=== PATIENT | female | born 1955 | race Caucasian/White ===

== ENCOUNTER 2022-05-11 10:14 | Outpatient (REF) | payer MEDICARE, OTHER, SELFPAY ==
--- NOTE | ~2022-05-11 | US_ITS ---
EXAMINATION: US LOWER EXTREMITY VENOUS (REFLUX EXAM), BILATERAL CLINICAL INDICATION: Bilateral lower extremity edema COMPARISON: None. TECHNIQUE: Color flow triplex imaging and compression Doppler was performed to evaluate both the deep and the superficial systems bilaterally. To evaluate the superficial system, the examination was performed in the upright position. Color-flow Doppler ultrasound and compression ultrasound were utilized. In addition, maneuvers were utilized to demonstrate reflux. FINDINGS: 1. DEEP VENOUS ULTRASOUND OF THE RIGHT LOWER EXTREMITY: Common Femoral Vein: Compressible, normal respiratory variation and augmented flow. Femoral Vein: Compressible, normal color flow and augmentation. Popliteal Vein: Compressible, normal augmentation. Deep Reflux: There is no evidence of reflux in the deep system in either the common femoral vein or the popliteal vein. There is no evidence of a Lagunas's cyst. 2. SUPERFICIAL ULTRASOUND WITH DOPPLER OF RIGHT LOWER EXTREMITY: GREAT SAPHENOUS VEIN: Saphenofemoral Junction: 0.6 cm; Reflux: 0 ms Proximal Thigh: 0.3 cm; Reflux: 0 ms Mid Thigh: 0.3 cm; Reflux: 0 ms Above Knee: 0.4 cm; Reflux: 0 ms At Knee: 0.3 cm; Reflux: 0 ms Below Knee: 0.3 cm; Reflux: 0 ms Mid Calf: 0.2 cm; Reflux: 0 ms Ankle: 0.2 cm; Reflux: 0 ms DUPLICATED MEDIAL GREAT SAPHENOUS VEIN: Diameter: 0.4 cm Reflux: None DUPLICATED LATERAL GREAT SAPHENOUS VEIN: Diameter: None Imaged Reflux: NA SMALL SAPHENOUS VEIN: Proximal: Not visualized Distal: 0.3 cm; Reflux: 0 ms VEIN OF GIACOMINI: None Imaged. PERFORATORS: Location: Distal thigh Size: 0.2 cm Reflux: None VARICOSITIES: Location: knee, anterior distal thigh Size: 0.1 to 0.3 cm Reflux: 796-1824 milliseconds 3. DEEP VENOUS ULTRASOUND OF THE LEFT LOWER EXTREMITY: Common Femoral Vein: Compressible, normal respiratory variation and augmented flow. Femoral Vein: Compressible, normal color flow and augmentation. Popliteal Vein: Compressible, normal augmentation. Deep Reflux: There is no evidence of reflux in the deep system in either the common femoral vein or the popliteal vein. There is no evidence of a Lagunas's cyst. 4. SUPERFICIAL ULTRASOUND WITH DOPPLER OF LEFT LOWER EXTREMITY: GREAT SAPHENOUS VEIN: Saphenofemoral Junction: 0.7 cm; Reflux: 0 ms Proximal Thigh: 0.2 cm; Reflux: 0 ms Mid Thigh: 0.4 cm; Reflux: 0 ms Above Knee: 0.3 cm; Reflux: 0 ms At Knee: 0.3 cm; Reflux: 0 ms Below Knee: 0.3 cm; Reflux: 0 ms Mid Calf: 0.2 cm; Reflux: 0 ms Ankle: 0.2 cm; Reflux: 0 ms DUPLICATED MEDIAL GREAT SAPHENOUS VEIN: Diameter: None Imaged Reflux: NA DUPLICATED LATERAL GREAT SAPHENOUS VEIN: Diameter: None Imaged Reflux: NA SMALL SAPHENOUS VEIN: Proximal: 0.1 cm; Reflux: 0 ms Distal: 0.2 cm; Reflux: 0 ms VEIN OF GIACOMINI: None Imaged. PERFORATORS: Location: Distal small saphenous vein and the mid thigh Size: 0.2 cm Reflux: None VARICOSITIES: Location: Distal thigh and posterior lateral mid thigh Size: 0.3 cm Reflux: 640 ms US/US venous duplex LE BI IMPRESSION: Right: No significant reflux in the saphenous veins. There are scattered small varicose veins with reflux as described above Left: No significant reflux in the saphenous veins. There are scattered multiple varicose veins with reflux as described above
== END 2022-05-11 10:15 | disposition home or self-care (01) ==
LOC: HO.US 10:14
PROVIDERS: PCP Internal Medicine; Visit Provider Family Medicine
DX: R60.0 Localized edema (principal)
CPT/HCPCS: 93970

== ENCOUNTER → 2022-07-28 10:04 | Outpatient (BNVA) | payer MEDICARE, OTHER, SELFPAY | PROVIDERS: PCP Internal Medicine; Visit Provider Surgery Vascular Surgery | DX: I83.12 Varicose veins of left lower extremity with inflammation (principal); I89.0 Lymphedema, not elsewhere classified | CPT/HCPCS: 99202 ==

== ENCOUNTER 2023-11-27 10:13 | Outpatient (REF) | payer MEDICARE, SELFPAY ==
[2023-11-27 14:57] LABS: Alanine Aminotransferase 23 U/L (0-31); Albumin Level 3.7 g/dL (3.5-5.0); Alkaline Phosphatase 91 U/L (39-117); Anion Gap 9 (12-20); Aspartate Amino Transferase 18 U/L (5-31); Bilirubin Direct 0.1 mg/dL (0.0-0.5); Bilirubin Total 0.4 mg/dL (0.0-1.0); Blood Urea Nitrogen 15 mg/dL (9-16); Carbon Dioxide 28 mmol/L (22-29); Chloride 107 mmol/L (96-108); Cholesterol 214 mg/dL (<200); Estimated Glomerular Filt Rate > 60; Glucose Fasting 88 mg/dL (60-99); HDL Cholesterol 59 mg/dL (>40); LDL Cholesterol Calculated 136 mg/dL (<100); Sodium 140 mmol/L (135-145); Total Protein 6.5 g/dL (6.5-8.0); Triglycerides 97 mg/dL (<150)
[2023-11-27 15:16] LABS: TSH reflex Free T4 1.63 uIU/mL (0.32-4.0)
[2023-11-28 08:29] LABS: ~HepC Num1 0.07 S/CO (0.00-0.79); ~Hepatitis C Antibody Nonreactive (Nonreactive)
== END 2023-11-27 10:14 | disposition home or self-care (01) ==
LOC: HO.CHCLDS 10:13
PROVIDERS: Visit Provider Internal Medicine
DX: E78.00 Pure hypercholesterolemia, unspecified (principal); R60.0 Localized edema
CPT/HCPCS: 36415; 80048; 80061; 80076; 84443; 86803

== ENCOUNTER 2023-12-19 10:29 | Outpatient (REF) | payer MEDICARE, SELFPAY ==
--- NOTE | 2023-12-19 10:36 | ECG_ITS ---
Test Reason : bradycardia Blood Pressure : / mmHG Vent. Rate : 063 BPM Atrial Rate : 000 BPM P-R Int : 000 ms QRS Dur : 082 ms QT Int : 398 ms P-R-T Axes : 000 013 060 degrees QTc Int : 407 ms Normal sinus rhythm with Premature atrial complexes in a pattern of bigeminy Abnormal ECG No previous ECGs available Referred By: Disha Noe Electronically Signed By:SAMARA RODRIGUEZ MD
== END 2023-12-19 10:30 | disposition home or self-care (01) ==
LOC: HO.LAB 10:29
PROVIDERS: PCP Internal Medicine; Visit Provider Internal Medicine
DX: R00.1 Bradycardia, unspecified (principal)
CPT/HCPCS: 93005

== ENCOUNTER → 2023-12-19 10:36 | Outpatient (BNV) | payer MEDICARE, MEDICAID, SELFPAY | PROVIDERS: PCP Internal Medicine; Visit Provider Internal Medicine Cardiovascular Disease | DX: I49.1 Atrial premature depolarization (principal) | CPT/HCPCS: 93010 ==

== ENCOUNTER → 2024-01-11 09:42 | Outpatient (REF) | payer MEDICARE, MEDICAID, SELFPAY ==
--- NOTE | 2024-01-11 09:46 | HM_ITS ---
Conclusion: 1. Patient was monitored for total period of 1 day 2. Baseline was normal sinus rhythm with average heart of 66 beats per minute 3. Frequent sinus bradycardia noted with about 44% of time heart rate below 60 beats per minute but without any significant pauses 4. Frequent PACs noted with total burden of 3.6% 5. No patient reported events MTDD
== END ==
LOC: HO.CARD 09:42
PROVIDERS: PCP Internal Medicine; Visit Provider Internal Medicine
DX: R42 Dizziness and giddiness (principal); R94.31 Abnormal electrocardiogram [ECG] [EKG]
CPT/HCPCS: 93225

== ENCOUNTER → 2024-01-11 09:46 | Outpatient (BNV) | payer MEDICARE, MEDICAID, SELFPAY | PROVIDERS: PCP Internal Medicine; Visit Provider Internal Medicine Cardiovascular Disease | DX: R00.1 Bradycardia, unspecified (principal) | CPT/HCPCS: 93227 ==

== ENCOUNTER 2024-02-01 09:13 | Outpatient (REF) | payer MEDICARE, MEDICAID, SELFPAY ==
[2024-02-01 14:26] LABS: Cholesterol 195 mg/dL (<200); HDL Cholesterol 53 mg/dL (>40); LDL Cholesterol Calculated 125 mg/dL (<100); Triglycerides 88 mg/dL (<150)
== END 2024-02-01 09:14 | disposition home or self-care (01) ==
LOC: HO.CHCLDS 09:13
PROVIDERS: Visit Provider Internal Medicine
DX: E78.00 Pure hypercholesterolemia, unspecified (principal)
CPT/HCPCS: 36415; 80061

== ENCOUNTER 2024-11-04 11:02 | Outpatient (REF) | payer MEDICARE, SELFPAY ==
--- OUTSIDE RECORDS SUMMARY | 2024-11-04 12:29 | XMS_ITS | Encounter Summary ---
Author Organization [employer] Address [address] [facility] [address] [place] [address] Care Team Providers Care Bleacher Sulfite Pulp Name Role Phone Sarah Donald MD Primary Care Provider [phone] Encounter Details Date Type Department Care Team (Latest Contact Info) Description 11/04/2024 Travel Social History Tobacco Use Types Packs/Day Years Used Date Smoking Tobacco: Never Passive Smoke Exposure: Never Smokeless Tobacco: Never Alcohol Use Standard Drinks/Week Comments Never 0 (1 standard drink = 0.6 oz pur e alcohol) Alcohol Answer Date Recorded Q1: How often do you have a drink containing alc ohol? 2 06/24/2024 Q2: How many drinks containi ng alcohol do you have on a typical day when you are drinking? 0 06/24/2024 Q3: How often do you have six or more drinks on one occasion? 1 06/24/2024 Depression Answer Date Recorded Patient Health Questionnaire-9 Score 0 11/04/2024 Patient Health Questionnaire-9 Score 0 11/04/2024 Last PHQ-9: Questionnaire Data Not on file 0 11/04/2024 Housing Stability Answer Date Recorded What is your housing situation today? I have alfonsolatoya baker 11/04/[address] you li ve. Do you have problems with any of the following? None of the above 11/04/2024 Food Insecurity Answer Date Recorded Within the past 12 months, y ou worried that your food would run out before you got money to buy more: Never True 11/04/2024 Within the past 12 months,th e food you bought just didn't last and you didn't have enough money to get more: Not on file 05/2025 Transportation Answer Date Recorded In the past 12 months, has l ack of transportation kept you from medical appts, meetings, work or from getting things needed for daily living? No 11/04/2024 Utilities Answer Date Recorded In the past 12 months, has t he electric, gas, oil or water company threatened to shut off services in your home? No 11/04/2024 Depression Answer Date Recorded Patient Health Questionnaire-2 Score 0 11/04/2024 Internet Access Answer Date Recorded Internet Access Q1 Yes 11/04/2024 Internet Access Q2 Not on file 11/04/2024 Comments Unknown Sex and Gender Information Value Date Recorded Sex Assigned at Female 06/27/2022 10:21 AM EDT Legal Sex Female 10:21 AM EDT Gender Identity Female 06/27/2022 10:21 AM EDT Sexual Orientation Straight 06/27/2022 10 :21 AM EDT documented as of this encounter Plan of Treatment Upcoming Encounters Date Type Department Care Team ([facility] st Contact Info) Description 12/25/2024 11:00 AM EDT Office Visit [facility] AD[facility] [address] [place] [address] Jayda Singh documented as of this encounter Visit Diagnoses Not on filedocumented in this encounter Additional Health Concerns Assessment Noted Time PHQ-9 Depression Total Score: 0 11/05/19 25 9:53 AM EDT documented as of this encounter Care Teams Bleacher Sulfite Pulp Relationship Specialty Start Date End Date Sarah Donald MD [address] [place] [address] PCP - General Internal Medicine 08/28/18 documented as of this encounter
--- OUTSIDE RECORDS SUMMARY | 2024-11-04 12:29 | XMS_ITS ---
Author Organization [facility] Address [address] [address] Care Team Providers Care Student Teacher Name Role Phone Sarah Donald Primary Care Provider Unavail able MARY BETH DE LEON Unavailable [phone] Allergies No Known Allergies REASON FOR VISIT left foot pain X 3 weeks... stepped off of stairs the wrong way Medications Medication SIG (Take, Route, Frequency, Duration) Notes Start Date End Date Status Vitamin D 25 MCG (1000 UT) 1 tablet Orally Once a day Active Diclofenac Sodium 1 % as directed Externally Not-Taking Furosemide 20 MG 1 tablet Orally Once a day Not-Taking Estradiol 0.1 MG/24HR 1 patch to skin Transdermal Active Finasteride 5 MG 1 tablet Orally Once a day Not-Taking Simvastatin 40 MG 1 tablet in the even ing Orally Once a day Active Lisinopril-hydroCHLOROthi azide 10-12.5 MG 1 tablet Orally Once a day Active Omeprazole 20 MG 1 capsule 30 minutes before morning meal Orally Once a day Active Oxymetazoline HCl 1 % 1 application Externally Once a day Not-Taking Melatonin 5 MG 1 tablet in the even ing Orally Once a day Not-Taking Vital Signs Temperature 96.8 degrees Fahrenheit 10/24/19 24 Heart Rate 84 /min 10/24/2023 Respiratory Rate 16 /min 10/24/2023 Height 5ft 5.5in in 10/24/2023 Weight 208.6 lbs 10/24/2023 BMI 34.18 kg/m2 10/24/2023 Encounters Encounter Location Date Provider Diagnosis [facility] [address] [address] 10/24/2023 MARY BETH DE LEON Closed avulsion fracture of metatarsal bone of left foot, initial encounter S92.302A Assessments Encounter Date Diagnosis (ICD Code) Assessment Notes Treatment Notes Treatment Clinical Notes Section Notes 10/24/2023 Closed avulsion fracture of metatarsal bone of left foot, initial encounter (ICD-10 - S92.302A) Patient examined and evaluated today. Her past medical history was reviewed. Weightbearing radiographs of patient's left foot were reviewed with them on the computer with the help of a skeletal foot model. Patient has a small chip like avulsion fracture to the base of the 5th metatarsal.. I discussed with the patient that it takes 6-8 weeks for the tenderness to calm down This fracture did not need manual manipulation today and will be treated with continue protective stiff soled shoe gear, icing, and elevation. I advised the patient to keep elevating the foot to heart level, icing, and using anti-inflammatori es as needed for pain. The patient may walk on the foot. Patient may feel better if they wear a more supportive sneaker when ambulating. Patient should refrain from any high impact loading activities for the next 4 weeks. Patient voiced understanding. I discussed with the patient if they continue to have pain after about 3 months or the pain worsens, they should call to make another appointment. I provided the patient with an educational print out on 5th metatarsal fractures and printed copies of her radiographs. She can follow back as needed. Plan Of Treatment Treatment Notes Assessment Notes Closed avulsion fracture of metatarsal bone of left foot, initial encounter Patient examined and evaluated today. He r past medical history was reviewed. Weightbearing radiographs of patient's left foot were reviewed with them on the computer with the help of a skeletal foot model. Patient has a small chip like avulsion fracture to the base of the 5th metatarsal.. I discussed with the patient that it takes 6-8 weeks for the tenderness to calm down This fracture did not need manual manipulation today and will be treated with continue protective stiff soled shoe gear, icing, and elevation. I advised the patient to keep elevating the foot to heart level, icing, and using anti-inflammatories as needed for pain. The patient may walk on the foot. Patient may feel better if they wear a more supportive sneaker when ambulating. Patient should refrain from any high impact loading activities for the next 4 weeks. Patient voiced understanding. I discussed with the patient if they continue to have pain after about 3 months or the pain worsens, they should call to make another appointment. I provided the patient with an educational print out on 5th metatarsal fractures and printed copies of her radiographs. She can follow back as needed. Pending Test Test Name Order Date X ray : Foot, left 3v 10/24/2023 Progress Notes * Akilah MILLER TDOB: [birth year] (67 yo F)Acc No.[id number]:10/24/2023 Progress Notes Patient:?Akilah MILLER Provider:?Mary Beth Harris DPTaco :1955???Age:67 Y???Sex:Female D ate:10/24/2023 Address:[address] [place], [place] [id number] Pcp:Sarah Donald Subjective: * Chief Complaints: * ???left foot pain X 3 weeks. .. stepped off of stairs the wrong way * HPI: ???Foot & Ankle:? Ms. Miller is a pleasant 67 year old female who presents for a consultation. She has been having pain to the outer aspect of her left foot for the past 3 weeks. It seemed to start after a misstep on her stairs. She did not notice and bruising after the injury. She did notice some increased swelling to the foot. She does have lower extremity swelling at baseline. She states at first the foot was very painful to walk on. She states now it is just painful with direct pressure to the area, but she can walk on it. She denies any injuries in the past to the left foot. She has been resting the foot as much as possible. * ROS:?General/Constitutional:?Denies?Chills.?Denies?Fatigue.?Denies?Fever.?Denies?Headache.?Allergy/Immunology:?Denies?Hives.?Denies?Itching.?Denies?Rash.?Endocrine:?Denies?Excessive sweating.?Denies?Excessive thirst.?Denies?Frequent urination.?Respiratory:?Denies?Cough.?Denies?Shortness of breath,?denies.?Denies?Wheezing.?Cardiovascular:?Denies?Chest pain.?Denies?Claudication.?Denies?Cyanosis.?Admits?Fluid accumulation in the legs.?Gastrointestinal:?Denies?Abdominal pain.?Denies?Constipation.?Denies?Diarrhea.?Hematology:?Denies?Bleeding problems,?denies.?Denies?Easy bruising,?denies.?Denies?Swollen glands.?Musculoskeletal:?Patient complaining of?pain to the outer aspect of the left foot.?Admits?Arthritis/Arthralgia.?Admits?Back problems.?Denies?Leg cramps.?Denies?Limping gait.?Peripheral Vascular:?Denies?Blanching of skin.?Blood clots in legs?Denies.?Denies?Cold extremities.?Skin:?Denies?Masses.?Denies?Nail changes.?Denies?Skin lesion(s).?Neurologic:?Denies?Paralysis.?Denies?Tingling/Numbness.?Denies?Tremor.?Psychiatric:?Denies?Auditory/visual hallucinations.?Denies?Delusions.?Denies?Suicidal thoughts.? * Medical History:? * Surgical History:?hysterecto my 2002spinal fusion 2006right shoulder surgery ilateral carpal tunnel release * Hospitalization/Major Diagno stic Procedure:?vaginal delivery (boy) 1975vaginal delivery (boy) 1979hysterectomy 2002spinal fusion 2005 * Family History:?Father: hear t disease.?Mother: hypertension, heart disease.?Siblings: sister- hypertension, breast cancerbrother- diabetes, heart disease.?2 son(s) - healthy. .? * Social History:?Tobacco: no Alcohol: no. * Medications:?TakingSimvastat in 40 MG Tablet 1 tablet in the evening Orally Once a day Omeprazole 20 MG Capsule Delayed Release 1 capsule 30 minutes before morning meal Orally Once a day Lisinopril-hydroCHLOROthiazide 10-12.5 MG Tablet 1 tablet Orally Once a day Estradiol 0.1 MG/24HR Patch Weekly 1 patch to skin Transdermal Vitamin D 25 MCG (1000 UT) Tablet 1 tablet Orally Once a day Taking Simvastatin 40 MG Tablet 1 tablet in the evening Orally Once a day Taking Omeprazole 20 MG Capsule Delayed Release 1 capsule 30 minutes before morning meal Orally Once a day Taking Lisinopril-hydroCHLOROthiazide 10-12.5 MG Tablet 1 tablet Orally Once a day Taking Estradiol 0.1 MG/24HR Patch Weekly 1 patch to skin Transdermal Taking Vitamin D 25 MCG (1000 UT) Tablet 1 tablet Orally Once a day Not-TakingOxymetazoline HCl 1 % Cream 1 application Externally Once a day Melatonin 5 MG Tablet 1 tablet in the evening Orally Once a day Furosemide 20 MG Tablet 1 tablet Orally Once a day Finasteride 5 MG Tablet 1 tablet Orally Once a day Diclofenac Sodium 1 % Gel as directed Externally Medication List reviewed and reconciled with the patientNot-Taking Oxymetazoline HCl 1 % Cream 1 application Externally Once a day Not-Taking Melatonin 5 MG Tablet 1 tablet in the evening Orally Once a day Not-Taking Furosemide 20 MG Tablet 1 tablet Orally Once a day Not-Taking Finasteride 5 MG Tablet 1 tablet Orally Once a day Not-Taking Diclofenac Sodium 1 % Gel as directed Externally Medication List reviewed and reconciled with the patient * Allergies:?N.K.D.A.no[Allerg ies Verified] Objective: * Vitals:?Wt:208.6lbs, Ht: 5ft 5.5in, BMI:34.18Index, HR:84/min, Temp:96.8F, RR:16/min, Ht-cm: 166.37, Wt-k.62 kg. * Examination: ???General Examination: ???This is an elderly female. Alert and oriented today and in no acute distress. Patient comes in ambulating in flats without using any assistive devices. Breathing is regular and unlabored while sitting. Affect is pleasant and cooperative. No unusual anxiety or depression noted. Hearing intact to spoken word. No evidence of visual impairment that would impact self care or ambulation. Patient has palpable dorsalis pedis and posterior tibial pulse bilaterally. Spider varicosities visualized. Peripheral edema present from the tibial tuberosity to the dorsum of the foot bilaterallly. This is pitting in nature. Capillary refill is less than 3 seconds to all digits bilaterally. Light touch sensation is symmetrical to all lower extremity dermatomes. Babinski is downgoing. Skin has normal turgor and texture. There are no open wounds, rashes, or lesions noted. There is pain with direct pressure to the left 5th metatarsal base. No ecchymosis, erythema, or increased edema. There is no pain proximally along the left peroneal tendons. No pain plantarly to the 5th met base on the left. There is mild restricted motion of the subtalar joint range of motion bilaterally without pain. Ankle joint range of motion is unrestricted bilaterally without pain. 5/5 strength for anterior, posterior, and lateral lower extremity muscle groups on the left and right. Therapeutic Interventions: Assessment: * Assessment: 1.?Closed avulsion fracture of metatarsal bone of left foot, initial encounter - S92.302A (Primary)? Plan: * Treatment: * Procedures:?LEFT FOOT RADIOGRAPHS 10/24/2023 3 weight bearing views (AP, LAT, LO PROJECTION/MO VIEW) Taken in the office and read by the physician. Osseous mineralization is age appropriate. There is mild narrowing of the 1st MPJ with sclerosis. There is a small chip fracture present to the base of the 5th metatarsal with minimal displacement. there is also a small enthesophyte to the lateral aspect of the 5th metatarsal base. Large posterior and plantar calcaneal enthesophytes. The anterior process of the calcaneus is elongated suggesting possible coalition. Mild sclerosis to the subtalar joint. No radio opaque foreign bodies or soft tissue calcifications. Diffuse soft tissue edema to the dorsum of the foot without soft tissue emphysema. ? * Procedure Codes:?10861 X-RAY EXAM OF FOOT 3 Views, Modifiers: LT * Billing Information: * Visit Code:? 22831 Office Visit, New Pt., Level 3. * Procedure Codes:? 73275 X-RAY EXAM OF FOOT 3 Views. Modifiers: LT * Sign off status: Completed true * Provider:Audra Harris DPM Date:?10/24 Generated for Ismael westbrook/Harjinder/Demond on:?11/04/2024 08:48 AM EDT History and Physical Notes * Examination Category Sub-Category Detail Notes Category Not es General Examination This is an elderly female. Alert and oriented today and in no acute distress. Patient comes in ambulating in flats without using any assistive devices. Breathing is regular and unlabored while sitting. Affect is pleasant and cooperative. No unusual anxiety or depression noted. Hearing intact to spoken word. No evidence of visual impairment that would impact self care or ambulation. Patient has palpable dorsalis pedis and posterior tibial pulse bilaterally. Spider varicosities visualized. Peripheral edema present from the tibial tuberosity to the dorsum of the foot bilaterallly. This is pitting in nature. Capillary refill is less than 3 seconds to all digits bilaterally. Light touch sensation is symmetrical to all lower extremity dermatomes. Babinski is downgoing. Skin has normal turgor and texture. There are no open wounds, rashes, or lesions noted. There is pain with direct pressure to the left 5th metatarsal base. No ecchymosis, erythema, or increased edema. There is no pain proximally along the left peroneal tendons. No pain plantarly to the 5th met base on the left. There is mild restricted motion of the subtalar joint range of motion bilaterally without pain. Ankle joint range of motion is unrestricted bilaterally without pain. 5/5 strength for anterior, posterior, and lateral lower extremity muscle groups on the left and right.
--- OUTSIDE RECORDS SUMMARY | 2024-11-04 12:29 | XMS_ITS | Patient Health Record ---
Author Organization [facility] Address [address] [facility] [address] [place] [address] Care Team Providers Care Events Intern Name Role Phone Sarah Donald Primary Care Provider Unavail able JOLENE DE LEON Unavailable [phone] Allergies No Known Allergies Reason For Referral No Information Medications Medication SIG (Take, Route, Frequency, Duration) Notes Start Date End Date Status Vitamin D 25 MCG (1000 UT) 1 tablet Orally Once a day Active Diclofenac Sodium 1 % as directed Externally Not-Taking Simvastatin 40 MG 1 tablet in the even ing Orally Once a day Active Furosemide 20 MG 1 tablet Orally Once a day Not-Taking Lisinopril-hydroCHLOROthi azide 10-12.5 MG 1 tablet Orally Once a day Active Estradiol 0.1 MG/24HR 1 patch to skin Transdermal Active Finasteride 5 MG 1 tablet Orally Once a day Not-Taking Omeprazole 20 MG 1 capsule 30 minutes before morning meal Orally Once a day Active Oxymetazoline HCl 1 % 1 application Externally Once a day Not-Taking Melatonin 5 MG 1 tablet in the even ing Orally Once a day Not-Taking Plan Of Treatment Pending Test Test Name Order Date X ray : Foot, left 3v 10/24/2023 Insurance Providers Payer Name Payer Address Payer Phone Subscriber Number Group Number Insured Name Patient Relationship to Insured Coverage Start Date Coverage End Date [employer] of [place] [address] [place] [phone] [id number] Akilah Caro Self - patient is the insured Medical (General) History Medical History History ICD Code Lower back pain hypertension hypercholesterolemia Lower extremity peripheral edema chronic pain of left knee + COVID 2021 COVID vaccinated X 3 (Pfizer) Surgical History Surgery Date(Month/Year) hysterectomy 2001 spinal fusion 2005 right shoulder surgery 2021 bilateral carpal tunnel release Hospitalization History Reason Date(Month/Year) spinal fusion 2006 hysterectomy 2002 vaginal delivery (boy) 1978 vaginal delivery (boy) 1975
--- OUTSIDE RECORDS SUMMARY | 2024-11-04 12:29 | XMS_ITS | Encounter Summary ---
Author Organization [employer] Address [address] [place] [address] [place], [place] [address] Care Team Providers Care Sandblast Operator Name Role Phone Sarah Donald MD Primary Care Provider [phone] Encounter Details Date Type Department Care Team (Latest Contact Info) Description 11/17/2020 Abstract [facility] CONVERSIONS Dental, Provider, DDS Social History Tobacco Use Types Packs/Day Years Used Date Smoking Tobacco: Never Assessed Comments Unknown Sex and Gender Information Value Date Recorded Sex Assigned at Female 06/27/2022 10:21 AM EDT Legal Sex Female 10:21 AM EDT Gender Identity Female 06/27/2022 10:21 AM EDT Sexual Orientation Straight 06/27/2022 10 :21 AM EDT documented as of this encounter Plan of Treatment Upcoming Encounters Date Type Department Care Team (Late st Contact Info) Description 12/25/2024 11:00 AM EDT Office Visit [facility] ADULT DENTAL [address] [place] [address] Jayda Singh documented as of this encounter Visit Diagnoses Not on filedocumented in this encounter Care Teams Sandblast Operator Relationship Specialty Start Date End Date Sarah Donald MD [address] [place] [address] PCP - General Internal Medicine 08/28/18 documented as of this encounter
--- OUTSIDE RECORDS SUMMARY | 2024-11-04 12:29 | XMS_ITS | Encounter Summary ---
Author Organization [employer] Address [address] [facility] 7t [place] [address] Care Team Providers Care Customer Field Representative Name Role Phone Sarah Donald MD Primary Care Provider +1- [phone] Reason for Visit * Reason Onset Date Comments Med Refill 02/01/2024 Encounter Details Date Type Department Care Team ([facility] st Contact Info) Description 02/01/2024 Refill [facility] MED & PEDS [address] [place] [address] Sarah Donald MD [address] [place] [address] Gastroesophageal reflux disease without esophagitis Social History Tobacco Use Types Packs/Day Years Used Date Smoking Tobacco: Never Passive Smoke Exposure: Never Smokeless Tobacco: Never Alcohol Use Standard Drinks/Week Comments Never 0 (1 standard drink = 0.6 oz pur e alcohol) Depression Answer Date Recorded Patient Health Questionnaire-9 Score 3 11/29/2022 Housing Stability Answer Date Recorded What is your housing situation today? I have alfonso baker 06/20/[address] you li ve. Do you have problems with any of the following? None of the above 06/20/2023 Food Insecurity Answer Date Recorded Within the past 12 months, y ou worried that your food would run out before you got money to buy more: Never True 06/20/2023 Within the past 12 months,th e food you bought just didn't last and you didn't have enough money to get more: Never True Transportation Answer Date Recorded In the past 12 months, has l ack of transportation kept you from medical appts, meetings, work or from getting things needed for daily living? No 06/20/2023 Utilities Answer Date Recorded In the past 12 months, has t he electric, gas, oil or water company threatened to shut off services in your home? No 06/20/2023 Depression Answer Date Recorded Patient Health Questionnaire-2 Score 2 11/29/2022 Comments Unknown Sex and Gender Information Value Date Recorded Sex Assigned at Female 06/27/2022 10:21 AM EDT Legal Sex Female 10:21 AM EDT Gender Identity Female 06/27/2022 10:21 AM EDT Sexual Orientation Straight 06/27/2022 10 :21 AM EDT documented as of this encounter Plan of Treatment Upcoming Encounters Date Type Department Care Team ([facility] st Contact Info) Description 12/25/2024 11:00 AM EDT Office Visit [facility] ADULT DENTAL [address] [place] [address] Jayda Singh documented as of this encounter Visit Diagnoses Diagnosis Gastroesophageal reflux disease without esophagitis Esophageal reflux documented in this encounter Additional Health Concerns Assessment Noted Time PHQ-9 Depression Total Score: 3 11/30/19 23 1:45 PM EDT documented as of this encounter Care Teams Customer Field Representative Relationship Specialty Start Date End Date Sarah Donald MD [address] [place] [address] PCP - General Internal Medicine 08/28/18 documented as of this encounter
--- OUTSIDE RECORDS SUMMARY | 2024-11-04 12:29 | XMS_ITS | Encounter Summary ---
Author Organization [employer] Address [address] [facility] 7t [place] [address] Care Team Providers Care Cytotechnologist Name Role Phone Sarah Donald MD Primary Care Provider [phone]- [phone] Encounter Details Date Type Department Care Team ([facility] st Contact Info) Description 12/13/2023 Orders Only [facility] MED & PEDS [address] [place], [place] [phone] Sarah Donald MD [address] [place] [address] Harika (Primary Dx) Social History Tobacco Use Types Packs/Day Years [...] Description 12/25/2024 11:00 AM EDT Office Visit [facility] ADULT DENTAL [address] [place] [address] Jayda Singh documented as of this encounter Visit Diagnoses Diagnosis Rosacea- Primary documented in this encounter Additional Health Concerns Assessment Noted Time PHQ-9 Depression Total Score: 3 11/30/19 23 1:45 PM EDT documented as of this encounter Care Teams Cytotechnologist Relationship Specialty Start Date End Date Sarah Donald MD [address] [place] [address] PCP - General Internal Medicine 08/28/18 documented as of this encounter
--- OUTSIDE RECORDS SUMMARY | 2024-11-04 12:29 | XMS_ITS | Encounter Summary ---
Author Organization [employer] Address [address] [place] [address] [address] [address] Care Team Providers Care Community Outreach Director Name Role Phone Sarah Donald MD Primary Care Provider +1- [phone] Encounter Details Date Type Department Care Team (Latest Contact Info) Description 05/31/2019 Abstract [facility] CONVERSIONS Dental, Provider, DDS Social History [...] Description 12/25/2024 11:00 AM EDT Office Visit [facility] ADULT DENTAL [address] [place] [address] Jayda Singh documented as of this encounter Visit Diagnoses Not on filedocumented in this encounter Care Teams Community Outreach Director Relationship Specialty Start Date End Date Sarah Donald MD [address] [place] [address] PCP - General Internal Medicine 08/28/18 documented as of this encounter
--- OUTSIDE RECORDS SUMMARY | 2024-11-04 12:29 | XMS_ITS | Encounter Summary ---
Author Organization [employer] Address [address] [facility] 7t [place] [address] Care Team Providers Care In Home Baby Sitter Name Role Phone Sarah Donald MD Primary Care Provider +1- [phone] Encounter Details Date Type Department Care Team ([facility] st Contact Info) Description 01/29/[address] [facility] MED & PEDS [address] [place], [place] [phone] Sarah Donald MD [address] [place] [address] Social History Tobacco Use Types Packs/Day Years [...] Description 12/25/2024 11:00 AM EDT Office Visit [facility] ADULT DENTAL [address] [place] [address] Jayda Singh documented as of this encounter Visit Diagnoses Not on filedocumented in this encounter Additional Health Concerns Assessment Noted Time PHQ-9 Depression Total Score: 3 11/30/19 23 1:45 PM EDT documented as of this encounter Care Teams In Home Baby Sitter Relationship Specialty Start Date End Date Sarah Donald MD [address] [place] [address] PCP - General Internal Medicine 08/28/18 documented as of this encounter
--- OUTSIDE RECORDS SUMMARY | 2024-11-04 12:29 | XMS_ITS | Clinical Summary ---
Author Organization [employer] Address [address] [facility] 7t [place] [address] Care Team Providers Care Irrigation District Manager Name Role Phone Sarah Donald MD Primary Care Provider +1- [phone] Allergies No known active allergies Medications finasteride (Proscar) 5 MG tablet Take 1 tablet by mouth at bed time. 09/21/19 22 Active melatonin 5 MG tablet take 1 by Oral route once a day 04/17/20 19 Active Diclofenac Sodium 1 % gelIndications :Chronic pain of left knee Apply to the affected area 3 times a day 100 g 2 05/31/20 23 Active omeprazole (PriLOSEC) [address] capsule TAKE ONE CAPSULE BY MOUTH EVERY DAY 90 capsule 2 07/24/20 23 Active orlistat (Blayne) 60 MG capsuleIndicat ions:Obesity (BMI 30-39.9) Take 1 capsule (60 mg) by mouth with breakfast, with lunch, and with evening meal. 90 capsule 11 11/30/19 24 025 Active omeprazole (PriLOSEC) [address] capsuleIndicat ions:Gastroeso phageal reflux disease without esophagitis Take 1 capsule (20 mg) by mouth in the morning. 90 capsule 2 11/30/19 24 Active cholecalcifero l (Vitamin D-3) 25 MCG (1000 UT) capsuleIndicat ions:Obesity (BMI 30-39.9) take 1 Capsule by Oral route once a day 30 capsule 11 11/30/19 24 Active simvastatin (Zocor) 40 MG tabletIndicati ons:Hyperchole sterolemia Take 1 tablet (40 mg) by mouth at bedtime. 30 tablet 11 11/30/19 24 025 Active Oxymetazoline HCl 1 % creamIndicatio ns:Rosacea To apply to the affected area daily 30 g 1 11/30/19 24 Active fluticasone (Flonase) 50 MCG/ACT nasal spray Administer 1 spray into each nostril Once per day. 16 g 12/18/19 24 Active co-enzyme Q-10 30 MG capsuleIndicat ions:Hyperchol esterolemia Take 1 capsule (30 mg) by mouth Once per day. 30 capsule 11 06/24/20 24 025 Active furosemide (Lasix) 20 MG tablet 1 tablet in the morning. Active lisinopril-hyd roCHLOROthiazi de 10-12.5 MG tablet TAKE ONE TABLET BY MOUTH EVERY DAY 90 tablet 1 07/22/20 24 Active estradiol (Climara) 0.1 MG/24HR APPLY ONE PATCH EVERY WEEK 12 patch 1 09/11/19 25 Active metroNIDAZOLE (MetroCream) 0.75 % creamIndicatio ns:Rosacea Apply topically 2 times daily. 45 g 1 11/05/19 25 026 Active neomycin-polym yxin-hydrocort isone (Cortisporin) 3.5-63064-4 otic suspensionIndi cations:Acute otitis externa of left ear, unspecified type Administer 3-4 drops into affected ear(s) 4 times daily for 10 days. 10 mL 11/05/19 25 025 Active metroNIDAZOLE (MetroCream) 0.75 % creamIndicatio ns:Rosacea Apply topically 2 times daily. 45 g 1 12/13/19 24 025 Discontinued(Re order (will not trigger notification to Pharmacy)) Active Problems Problem Noted Date Diagnosed Date Encounter for screening colonoscopy 07/01/2024 Vertigo 12/18/2023 Assessment & Plan (12/18/2023 3:27 PM EDT): Likely what triggered this morning's sxs. Take fluticasone nasal + Meclizine prn Increase PO fluids intake since she is on hydrochlorothiazide. Bradycardia 12/18/2023 Assessment & Plan (12/18/2023 3:26 PM EDT): No evidence of bradycardia on PE. ECG today had a poor baseline that seems to show ?junctional rhythm? Will order ECG at and fu result. Patient advised to go to ED if she develops palpitations, CP or episodes of bradycardia below 50s. Back problem 06/13/2013 Disorder of nasal sinus 06/13/2013 High blood pressure 06/13/2013 Hypercholesterolemia 06/13/2013 Swollen feet 06/13/2013 Encounters Date Type Department Care Team Description 11/04/2024 10:00 AM EDT Office Visit [facility] MED & PEDS [address] [place] [address] Sarah Donald MD Primary hypertension (Primary Dx); Hypercholesterolemia; Bradycardia; Family history of breast cancer; Dietary counseling; Exercise counseling; Class 1 obesity due to excess calories with serious comorbidity and body mass index (BMI) of 32.0 to 32.9 in adult; Rosacea; Acute otitis externa of left ear, unspecified type 11/04/2024 Travel 09/11/2024 Refill [facility] MED & PEDS [address] [place] [address] Sarah Donald MD from Last 3 Months Social History Tobacco Use Types Packs/Day Years Used Date Smoking Tobacco: Never Passive Smoke Exposure: Never Smokeless Tobacco: Never Tobacco Cessation:Counseling Given: Not Answered Alcohol Use Standard Drinks/Week Comments Never 0 [...] housing situation today? I have alfonso baker 11/04/[address] you [...] Orientation Straight 06/27/2022 10 :21 AM EDT Last Filed Vital Signs Vital Sign Reading Time Taken Comments Blood Pressure 130/64 11/04/2024 9:52 AM EDT Pulse 78 11/04/2024 9:52 AM EDT Temperature 36.4 ??C (97.6 ??F) 11/04/2024 9:52 AM ED T Respiratory Rate 20 11/04/2024 9:52 AM EDT Oxygen Saturation 98% 11/04/2024 9:52 AM EDT Inhaled Oxygen Concentration - - Weight 89.8 kg (198 lb) 11/04/2024 9:52 AM EDT Height 165.1 cm (5' 5 ) 11/04/2024 9:52 AM EDT Body Mass Index 32.95 11/04/2024 9:52 AM EDT Plan of Treatment Upcoming Encounters Date Type Department Care Team (Late st Contact Info) Description 12/25/2024 11:00 AM EDT Office Visit [facility] ADULT DENTAL [address] [place] [address] Francisco, Jayda Health Maintenance Due Date Last Done Comments CT Colonography 1955 FIT DNA/Cologuard 1955 FIT 1955 FOBT 1955 Sigmoidoscopy 1955 DTaP/Tdap/Td Vaccines (1 - Tdap) 11/30/1974 SDOH Screening 11/30/2023 11/29/2022 Dental Oral Exam 12/25/2024 06/25/2024, 06/2023, 11/17/2020, Additional history exists Dental Prophylaxis 12/25/2024 06/25/2024, 0 03/07/2023, 11/17/2020, Additional history exists Influenza Vaccine (#1) 2025 Postp oned from 04/28/2024 (Patient Refused) COVID-19 Vaccine ( season) 2025 08/25/2021, 11/22/2020, 11/01/2020 Postponed from 04/28/2024 (Patient Refused) Pneumococcal Vaccine: 50+ Years (1 of 1 - PCV) 06/24/2025 Postponed from 11/30/2005 (Patient Refused) Zoster Vaccines (1 of 2) 06/24/2025 Pos tponed from 11/30/2005 (Patient Refused) Dental X-Ray: Bitewings 06/26/2025 06/25/20 24, 03/07/2023, 11/17/2020, Additional history exists Alcohol/Substance Use Screening 11/04/2025 11/04/2024 Depression Screening 11/04/2025 11/04/2024, 11/05/19 25 Tobacco Screening 11/04/2025 11/04/2024 Mammogram 11/26/2025 11/27/2023 Colonoscopy 01/11/2027 01/11/2022 Colorectal Cancer Screening 01/11/2027 Dental X-Ray: Full Mouth 06/26/2027 06/25/2024, /04/2016 Lipid Panel 01/31/2029 02/01/2024, 04/08/2023, 11/23/2022, Additional history exists RSV Patients and Patients Aged 60 years or older (1 - 1-dose 75+ series) 11/30/2030 Hepatitis C Screening Completed 11/27/2023 HIB Vaccines Aged Out No longer eligi ble based on patient's age to complete this topic HPV Vaccines Aged Out No longer eligi ble based on patient's age to complete this topic Hepatitis A Vaccines Aged Out No long er eligible based on patient's age to complete this topic Hepatitis B Vaccines Aged Out No long er eligible based on patient's age to complete this topic IPV Vaccines Aged Out No longer eligi ble based on patient's age to complete this topic Meningococcal Vaccine Aged Out No sachin tasha eligible based on patient's age to complete this topic RSV under 20 months Aged Out No longe r eligible based on patient's age to complete this topic Rotavirus Vaccines Aged Out No longer eligible based on patient's age to complete this topic Procedures Procedure Name Priority Date/Time Associated Diagnosis Comments PROPHYLAXIS - ADULT Routine 06/25/2024 1 :00 PM EDT INTRAORAL - COMPLETE SERIES OF RADIOGRAPHIC IMAGES Routine 06/25/2024 1:00 PM EDT PERIODIC ORAL EVALUATION - ESTABLISHED PATIENT Routine 06/25/2024 1:00 PM EDT LIPID PANEL, STANDARD Routine 02/01/2024 9:16 AM EDT Hypercholesterolemi a HEPATITIS C AB W/REFL TO HCV RNA, QN, PCR Routine 11/27/2023 10:17 AM EDT Localized edema HM COLONOSCOPY Routine 01/11/2022 from Last 3 Months or Most Recently Relevant to Health Maintenance Results * (ABNORMAL) Lipid Panel, Standard (02/01/2024 9:16 AM EDT) Triglycerides 88 <150 mg/dL [facility] Comment:Desirable Triglyceri de: less than 150 mg/dLBorderline High Triglyceride 150-199 mg/dLHigh Triglyceride: 200-499 mg/dLVery High Triglyceride: greater than or equal to 5OO mg/dL Cholesterol 195 <200 mg/dL [facility] Comment:Desirable Cholestero l: less than 200 mg/dLBorderline High Cholesterol: 200-239 mg/dLHigh Cholesterol: greater than 239 mg/dL LDL Cholesterol Calculated 125(H) <100 mg/dL [facility] Comment:Desirable LDL: less than 100 mg/dLNear Optimal/Above Optimal LDL: 110- 129 mg/dLBorderline High LDL: 130-159 mg/dLHigh LDL: 160-189 mg/dLVery High LDL: greater than or equal to 190 mg/dL HDL Cholesterol 53 >40 mg/dL [facility] Comment:Desirable HDL: great er than 40 mg/dL Note: This HDL assay may give artificially low results in patients with liver disease. Blood Venous blood specimen / Unknown 02/01/2024 9:16 AM EDT 02/01/2024 2:02 PM EDT Sarah Donald MD LAB BLOOD ORDERABLES Final Result Performing Organization Address [facility] Co de Phone Number [facility] [address] [place] [phone] * Hepatitis C Antibody with Reflex to HCV, RNA, Quantitative, Real-Time PCR (11/27/2023 10:17 AM EDT) Hepatitis C Antibody Nonreactive Nonreactive [facility] Comment:Antibodies to HCV no t detected; does not exclude early acuteHCV infection. Blood Venous blood specimen / Unknown 11/27/2023 10:17 AM EDT 11/27/2023 2:21 PM EDT Sarah Donald MD LAB BLOOD ORDERABLES Final Result Performing Organization Address [facility] Co de Phone Number [facility] [address] [place] [phone] * Hm Colonoscopy (01/11/2022) Colonoscopy Normal Normal Narrative Marika Azevedo - 01/11/2022 Recommended 5 years Historical Provider HEALTH MAINTENANCE Final Result from Last 3 Months or Most Recently Relevant to Health Maintenance Insurance [employer] MEDICARE REPLACEMENT DENTAL - HSN PARTIAL (MEDICAID) Care Teams Irrigation District Manager Relationship Specialty Start Date End Date Sarah Donald MD [address] [place] [id number] PCP - General Internal Medicine 08/28/18
--- OUTSIDE RECORDS SUMMARY | 2024-11-04 12:29 | XMS_ITS | Encounter Summary ---
Author Organization [employer] Address [address] [facility] 7t [place] [address] Care Team Providers Care Air Grinder Name Role Phone Sarah Donald MD Primary Care Provider +1- [phone] Encounter Details Date Type Department Care Team (Late st Contact Info) Description 06/29/2023 Abstract [facility] MEDICINE [address] [place] [address] Sarah Donald MD [address] [place] [address] Social History Tobacco Use Types Packs/Day Years [...] Description 12/25/2024 11:00 AM EDT Office Visit [facility] ADULT DENTAL [address] [place] [address] Jayda Singh documented as of this encounter Procedures Procedure Name Priority Date/Time Associated Diagnosis Comments COLONOSCOPY Routine 01/11/2022 documented in this encounter Results * Hm Colonoscopy (01/11/2022) Colonoscopy Normal Normal Narrative Marika Azevedo - 01/11/2022 Recommended 5 years us Historical Provider HEALTH MAINTENANCE Final Result documented in this encounter Visit Diagnoses Not on filedocumented in this encounter Additional Health Concerns Assessment Noted Time PHQ-9 Depression Total Score: 3 11/30/19 23 1:45 PM EDT documented as of this encounter Care Teams Air Grinder Relationship Specialty Start Date End Date Sarah Donald MD [address] [place] [address] PCP - General Internal Medicine 08/28/18 documented as of this encounter
--- OUTSIDE RECORDS SUMMARY | 2024-11-04 12:29 | XMS_ITS | Encounter Summary ---
Author Organization [employer] Address [address] [address] Care Team Providers Care Senior Information Developer Name Role Phone Sarah Donald MD Primary Care Provider +1- [phone] Reason for Visit * Reason Onset Date Comments Referral 02/13/2024 Encounter Details Date Type Department Care Team ([facility] st Contact Info) Description 02/13/2024 Telephone [facility] MEDICINE [address] [place] [address] Sarah Donald MD [address] [place] [address] Referral Social History Tobacco Use Types Packs/Day Years [...] AM EDT documented as of this encounter Miscellaneous Notes * Telephone Encounter - Maria M Lang - 02/15/2024 4:14 PM EDT Referral faxed to number provided. * Telephone Encounter - Varun Rodrigez - 02/13/2024 10:14 AM EDT Tc from patient calling in regards to the referral for cardiology states has called and was told there was no referrals was sent patient provided fax number for location it is [phone] documented in this encounter Plan of Treatment Upcoming Encounters Date Type Department Care Team (Late st Contact Info) Description 12/25/2024 11:00 AM EDT Office [facility] ADULT D[facility] [address] [place] [address] Jayda Singh documented as of this encounter Visit Diagnoses Not on filedocumented in this encounter Additional Health Concerns Assessment Noted Time PHQ-9 Depression Total Score: 3 11/30/19 23 1:45 PM EDT documented as of this encounter Care Teams Senior Information Developer Relationship Specialty Start Date End Date Sarah Donald MD [address] [place] [address] PCP - General Internal Medicine 08/28/18 documented as of this encounter
--- OUTSIDE RECORDS SUMMARY | 2024-11-04 12:29 | XMS_ITS | Clinical Summary ---
Author Organization [facility] Address [address] [place] [address] Care Team Providers Care Drawing Operator Name Role Phone Unavailable Primary Care Provider Unavailabl e Social History Tobacco Use Types Packs/Day Years Used Date Smoking Tobacco: Never Assessed Sex and Gender Information Value Date Recorded Sex Assigned at Not on file Gender Identity Not on file Sexual Orientation Not on file Plan of Treatment Health Maintenance Due Date Last Done Comments Hepatitis C Virus Screening 1955 DTaP/Tdap/Td Vaccines (1 - Tdap) 11/30/1974 Pneumococcal Vaccines 50+ (1 of 1 - PCV) 11/30/2005 Zoster (Shingles) Vaccine (1 of 2) 11/30/2005 COVID-19 Vaccine ( - 2023-2 5 season) 2024 RSV Vaccine 60 years and old er and Patients (1 - 1-dose 75+ series) 11/30/2030 Hepatitis B Vaccines Aged Out No long er eligible based on patient's age to complete this topic
--- OUTSIDE RECORDS SUMMARY | 2024-11-04 12:29 | XMS_ITS ---
Author Organization [facility] Address [address] [address] Care Team Providers Care Flat Breakdown Processor Name Role Phone Sarah Donald Primary Care Provider Unavail JOLENE Lau Unavailable [phone] REASON FOR VISIT Medical Records Encounters Encounter Location Date Provider Diagnosis [facility] [address] [address] 10/18/2023 JOLENE DE LEON Plan Of Treatment No Information Progress Notes * Akilah MILLERDOB:1955 (67 yo F)Acc No.[id number]:10/18/2023 Patient:?Akilah MILLER :1955???Age:67 Y???Sex:Female Address:[address] [place] [address] * true * Date:? Generated for Chinyerei pietro/Harjinder/eTransmitting on:?11/04/2024 12:28 PM EDT
--- OUTSIDE RECORDS SUMMARY | 2024-11-04 12:29 | XMS_ITS | Encounter Summary ---
Author Organization [employer] Address [address] [facility] [address] [place] [address] Care Team Providers Care Research Attorney Name Role Phone Sarah Donald MD Primary Care Provider +1- [phone] Reason for Visit * Reason Onset Date Comments Prior Authorization 12/07/2023 Encounter Details Date Type Department Care Team (Late st Contact Info) Description 12/07/2023 Telephone [facility] MEDICINE [address] [place] [address] Sarah Donald MD [address] [place] [address] Prior Authorization Social History Tobacco Use Types Packs/Day Years [...] encounter Miscellaneous Notes * Telephone Encounter - Suellen Brown LPN - 12/12/2023 3:34 PM EDT Please review message below. I spoke with pharmacy stated insurance will cover Metro cream . Tc from pt stating Oxymetazoline HCl 1 % cream needs a Prior Authorization. * Telephone Encounter - Darshan Bueno - 12/07/2023 3:12 PM EDT Tc from pt stating Oxymetazoline HCl 1 % cream needs a Prior Authorization. documented in this encounter Plan of Treatment Upcoming Encounters Date Type Department Care Team ([facility] st Contact Info) Description 12/25/2024 11:00 AM EDT Office Visit [facility] ADULT DENTAL [address] [place] [address] Jayda Singh documented as of this encounter Visit Diagnoses Not on filedocumented in this encounter Additional Health Concerns Assessment Noted Time PHQ-9 Depression Total Score: 3 11/30/19 23 1:45 PM EDT documented as of this encounter Care Teams Research Attorney Relationship Specialty Start Date End Date Sarah Donald MD [address] [place] [address] PCP - General Internal Medicine 08/28/18 documented as of this encounter
--- OUTSIDE RECORDS SUMMARY | 2024-11-04 12:29 | XMS_ITS | Encounter Summary ---
Author Organization [facility] Address [address] [facility] 7t [place] [address] Care Team Providers Care Patient Liaison Name Role Phone Sarah Donald MD Primary Care Provider [phone] Reason for Visit * Reason Onset Date Comments Med Refill 02/01/2024 Encounter Details Date Type Department Care Team ([facility] st Contact Info) Description 02/01/2024 Refill [facility] CHC MED & PEDS [address] [place] [address] Sarah Donald MD [address] [place] [address] Hypercholesterolemia Social History Tobacco Use Types Packs/Day Years [...] Description 12/25/2024 11:00 AM EDT Office Visit [facility] ADULT DENTAL [address] [place] [address] Jayda Singh documented as of this encounter Visit Diagnoses Diagnosis Hypercholesterolemia Pure hypercholesterolemia documented in this encounter Additional Health Concerns Assessment Noted Time PHQ-9 Depression Total Score: 3 11/30/19 23 1:45 PM EDT documented as of this encounter Care Teams Patient Liaison Relationship Specialty Start Date End Date Sarah Donald MD [address] [place] [address] PCP - General Internal Medicine 08/28/18 documented as of this encounter
--- OUTSIDE RECORDS SUMMARY | 2024-11-04 12:29 | XMS_ITS | Encounter Summary ---
Author Organization [employer] Address [address] [place] [address] Care Team Providers Care Cloud Services Architect Name Role Phone Sarah Donald MD Primary Care Provider [phone]- [phone] Reason for Referral * Consultation (Routine) - Pending Review Specialty Diagnoses / Procedures Referred By Cristiano heller Referred To Contact Genetics Diagnoses Family history of breast cancer Sarah Donald MD [address] [place] [address] Phone: tel: fax: Referral ID Status Reason Start Date Expiration Date Visits Requested Visits Authorized [id number] Pending Review Specialty Services Required 11/04/2024 11/04/2025 1 1 Reason for Visit * Reason Comments Hypertension Hyperlipidemia Encounter Details Date Type Department Care Team ([facility] Contact Info) Description 11/04/2024 10:00 AM EDT Office Visit [facility] MED & PEDS [address] [place] [address] Sarah Donald MD [address] [place] [address] Primary hypertension (Primary Dx); Hypercholesterolemia; Bradycardia; Family history of breast cancer; Dietary counseling; Exercise counseling; Class 1 obesity due to excess calories with serious comorbidity and body mass index (BMI) of 32.0 to 32.9 in adult; Rosacea; Acute otitis externa of left ear, unspecified type Social History Tobacco Use Types Packs/Day Years [...] AM EDT documented as of this encounter Last Filed Vital Signs Vital Sign Reading [...] Mass Index 32.95 11/04/2024 9:52 AM EDT documented in this encounter Plan of Treatment Upcoming Encounters Date Type Department Care Team (Late st Contact Info) Description 12/25/2024 11:00 AM EDT Office Visit [facility] ADULT DENTAL [address] [place] [address] Jayda Singh Scheduled Referrals Name Type Priority Associated Diagnoses Orde r Schedule Referral to Genetics Outpatient Referral Routine Family history of breast cancer Expected: 11/04/2024 (Approximate), Expires: 11/04/2025 documented as of this encounter Visit Diagnoses Diagnosis Primary hypertension- Primary Unspecified essential hypertension Hypercholesterolemia Pure hypercholesterolemia Bradycardia Other specified cardiac dysrhythmias Family history of breast cancer Family history of malignant neoplasm of breast Dietary counseling Dietary surveillance and counseling Exercise counseling Class 1 obesity due to excess calories with serious comorbidity and body mass index (BMI) of 32.0 to 32.9 in adult Rosacea Acute otitis externa of left ear, unspecified type documented in this encounter Additional Health Concerns Assessment Noted Time PHQ-9 Depression Total Score: 0 11/05/19 25 9:53 AM EDT documented as of this encounter Care Teams Cloud Services Architect Relationship Specialty Start Date End Date Sarah Donald MD [address] [place] [address] PCP - General Internal Medicine 08/28/18 documented as of this encounter
[2024-11-04 14:24] LABS: MANUAL DIFF FLAG NO
[2024-11-04 14:37] LABS: Basophils Absolute Auto 0.1 X10*3/uL (0.0-0.2); Eosinophils Absolute Auto 0.1 X10*3/uL (0.0-0.4); Eosinophils Percent Auto 1.3 % (0-4); Hematocrit 44.2 % (37.0-47.0); Hemoglobin 14.2 g/dl (12.0-16.0); Imm Gran Abs Auto 0.03 X10*3/uL (0.00-0.03); Imm Gran Pct Auto 0.4 % (0.0-0.4); Lymphocytes Absolute Auto 2.1 X10*3/uL (1.2-4.9); Lymphocytes Percent Auto 29.6 % (20-40); Mean Corpuscular HGB Conc 32.1 g/dl (31.0-35.0); Mean Corpuscular Hemoglobin 28.7 pg (27.0-33.0); Mean Corpuscular Volume 89.3 fL (80.0-98.0); Mean Platelet Volume 10.8 fL (9.4-12.3); Monocytes Absolute Auto 0.6 X10*3/uL (0.1-1.2); Monocytes Percent Auto 8.2 % (2-11); Neutrophils Absolute Auto 4.3 x10*3/uL (2.0-8.3); Neutrophils Percent Auto 59.5 % (45-73); Platelet Count 258 X10*3/uL (160-400); Red Blood Count 4.95 X10*6/uL (4.20-5.50); White Blood Count 7.2 X10*3/uL (4.8-10.8)
[2024-11-04 15:03] LABS: Alanine Aminotransferase 19 U/L (0-31); Albumin Level 3.8 g/dL (3.5-5.0); Alkaline Phosphatase 114 U/L (39-117); Anion Gap 11 (12-20); Aspartate Amino Transferase 19 U/L (5-31); Bilirubin Total 0.6 mg/dL (0.0-1.0); Blood Urea Nitrogen 15 mg/dL (9-16); Calcium 9.3 mg/dL (8.4-10.2); Carbon Dioxide 30 mmol/L (22-29); Chloride 103 mmol/L (96-108); Cholesterol 204 mg/dL (<200); Estimated Glomerular Filt Rate > 60; Glucose Random 88 mg/dL (60-115); HDL Cholesterol 50 mg/dL (>40); LDL Cholesterol Calculated 130 mg/dL (<100); Potassium 3.8 mmol/L (3.3-5.1); Sodium 140 mmol/L (135-145); Total Protein 6.9 g/dL (6.5-8.0); Triglycerides 122 mg/dL (<150)
[2024-11-04 15:18] LABS: TSH reflex Free T4 1.51 uIU/mL (0.32-4.0)
== END 2024-11-04 11:03 | disposition home or self-care (01) ==
LOC: HO.CHCLDS 11:02
PROVIDERS: Visit Provider Internal Medicine
DX: I10 Essential (primary) hypertension (principal); E78.00 Pure hypercholesterolemia, unspecified
CPT/HCPCS: 36415; 80053; 80061; 84443; 85025

== ENCOUNTER 2025-05-07 10:15 | Outpatient (REF) | payer MEDICARE, SELFPAY ==
--- OUTSIDE RECORDS SUMMARY | 2025-04-30 09:45 | XMS_ITS ---
Author Organization [facility] Address [address] [address] Care Team Providers Care Community Facilitator Name Role Phone Sarah Donald Primary Care Provider Unavail JOLENE Lau Unavailable [phone] REASON FOR VISIT injection Encounters Encounter Location Date Provider Diagnosis [facility] [address] [address] 04/30/2025 JOLENE DE LEON Plan Of Treatment No Information Progress Notes * Akilah MILLER TDOB: (69 yo F)Acc No.[id number]:04/30/2025 Progress Note Patient: Akilah BROUSSARD Provider: Chel Harris DPTaco :1955 A ge:69 Y S ex:Female Date:04/30/2025 Address:[address] [place], [place] [id number] Pcp:Sarah Donald Subjective: * Chief Complaints: * 1 . Injection. * Medical History: Objective: * Vitals: Assessment: Plan: * Treatment: * Billing Information: * Visit Code: * Procedure Codes: * Electronic signature of Ciara RAMOSPTushar on 05/07/2025 at 12:27 PM EDT Sign off status: Pending * Provider: Chel Harris DPM Date: 04/30/2025 Generated for Printi ng/Faxing/eTransmitting on: 05/07/2025 12:27 PM EDT
--- OUTSIDE RECORDS SUMMARY | 2025-05-07 12:27 | XMS_ITS | Encounter Summary ---
Author Organization [email or web address] Address [address] [facility] 7t [place] [address] Care Team Providers Care Gas Turbine Powerplant Mechanic Name Role Phone Sarah Donald MD Primary Care Provider [phone] Encounter Details Date Type Department Care Team ([facility] st Contact Info) Description 02/14/2025 Orders Only [facility] CHC MED & PEDS [address] [place], [place] [phone] ProviderAubree MD Social History Tobacco Use Types Packs/Day Years [...] Care Team (Late st Contact Info) Description 07/16/2025 10:00 AM EST Office Visit [facility] ADULT DENTAL [address] [place] [address] Jayda Singh documented as of this encounter Procedures Procedure Name Priority Date/Time Associated Diagnosis Comments ECG 12-LEAD Routine 01/22/2025 11:03 AM EDT documented in this encounter Results * ECG 12 lead (01/22/2025 11:03 AM EDT) us Historical Provider ECG ORDERABLES Final Res ult documented in this encounter Visit Diagnoses Not on filedocumented in this encounter Additional Health Concerns Assessment Noted Time PHQ-9 Depression Total Score: 0 11/05/19 25 9:53 AM EDT documented as of this encounter Care Teams Gas Turbine Powerplant Mechanic Relationship Specialty Start Date End Date Sarah Donald MD [address] [place] [address] PCP - General Internal Medicine 08/28/18 documented as of this encounter
--- OUTSIDE RECORDS SUMMARY | 2025-05-07 12:27 | XMS_ITS | Encounter Summary ---
Author Organization [employer] Address [address] [facility] 7t [place] [address] Care Team Providers Care Distribution Superintendent Name Role Phone Sarah Donald MD Primary Care Provider [phone] Encounter Details Date Type Department Care Team ([facility] st Contact Info) Description 12/02/2024 Orders Only [facility] CHC MED & PEDS [address] [place], [place] [phone] ProviderAubree MD Social History Tobacco Use Types [...] Description 07/16/2025 10:00 AM EST Office Visit [facility] ADULT DENTAL [address] [place] [address] Jayda Singh documented as of this encounter Procedures Procedure Name Priority Date/Time Associated Diagnosis Comments HM MAMMOGRAPHY Routine 11/29/2024 9:00 AM EDT documented in this encounter Results * Hm Mammography (11/29/2024 9:00 AM EDT) Anatomical Region Laterality Modality Other Historical Provider HEALTH MAINTENANCE Final Result documented in this encounter Visit Diagnoses Not on filedocumented in this encounter Additional Health Concerns Assessment Noted Time PHQ-9 Depression Total Score: 0 11/05/19 25 9:53 AM EDT documented as of this encounter Care Teams Distribution Superintendent Relationship Specialty Start Date End Date Sarah Donald MD [address] [place] [address] PCP - General Internal Medicine 08/28/18 documented as of this encounter
--- OUTSIDE RECORDS SUMMARY | 2025-05-07 12:27 | XMS_ITS | Encounter Summary ---
Author Organization [employer] Address [address] [address] Care Team Providers Care Lining Ironer Name Role Phone Sarah Donald MD Primary Care Provider [phone] Reason for Visit * Reason Onset Date Comments Referral 02/13/2024 Encounter Details Date Type Department Care Team ([facility] st Contact Info) Description 02/13/2024 Telephone [facility] MEDICINE [address] [place] [address] Sarah Donald MD [address] [place] [address] Referral Social History Tobacco Use Types Packs/Day [...] provided fax number for location it is [phone] documented in this encounter Plan of Treatment Upcoming Encounters Date Type Department Care Team (Late st Contact Info) Description 07/16/2025 10:00 AM EST Office Visit [facility] ADULT DENTAL [address] [place] [address] Jayda Singh documented as of this encounter Visit Diagnoses Not on filedocumented in this encounter Additional Health Concerns Assessment Noted Time PHQ-9 Depression Total Score: 3 11/30/19 23 1:45 PM EDT documented as of this encounter Care Teams Lining Ironer Relationship Specialty Start Date End Date Sarah Donald MD [address] [place] [address] PCP - General Internal Medicine 08/28/18 documented as of this encounter
--- OUTSIDE RECORDS SUMMARY | 2025-05-07 12:27 | XMS_ITS | Encounter Summary ---
Author Organization [employer] Address [address] [address] Care Team Providers Care Provider Relations Advocate Name Role Phone Sarah Donald MD Primary Care Provider [phone] Reason for Visit * Reason Onset Date Comments Med Refill 02/01/2024 Encounter Details Date Type Department Care Team ([facility] st Contact Info) Description 02/01/2024 Refill [facility] CHC MED & PEDS [address] [place] [address] Sarah Donald MD [address] [place] [address] Hypercholesterolemia Social History Tobacco Use Types Packs/Day [...] Description 07/16/2025 10:00 AM EST Office Visit [facility] ADULT DENTAL [address] [place] [address] Jayda Singh documented as of this encounter Visit Diagnoses Diagnosis Hypercholesterolemia Pure hypercholesterolemia documented in this encounter Additional Health Concerns Assessment Noted Time PHQ-9 Depression Total Score: 3 11/30/19 23 1:45 PM EDT documented as of this encounter Care Teams Provider Relations Advocate Relationship Specialty Start Date End Date Sarah Donald MD [address] [place] [address] PCP - General Internal Medicine 08/28/18 documented as of this encounter
--- OUTSIDE RECORDS SUMMARY | 2025-05-07 12:27 | XMS_ITS | Encounter Summary ---
Author Organization [employer] Address [address] [address] Care Team Providers Care Rural Sociologist Name Role Phone Sarah Donald MD Primary Care Provider [phone] Encounter Details Date Type Department Care Team ([facility] st Contact Info) Description 01/29/2024 Orders Only [facility] CHC MED & PEDS [address] [place], [place] [phone] Sarah Donald MD [address] [place] [address] Social History Tobacco Use Types Packs/Day Years [...] Description 07/16/2025 10:00 AM EST Office Visit [facility] ADULT DENTAL [address] [place] [address] Jayda Singh documented as of this encounter Visit Diagnoses Not on filedocumented in this encounter Additional Health Concerns Assessment Noted Time PHQ-9 Depression Total Score: 3 11/30/19 23 1:45 PM EDT documented as of this encounter Care Teams Rural Sociologist Relationship Specialty Start Date End Date Sarah Donald MD [address] [place] [address] PCP - General Internal Medicine 08/28/18 documented as of this encounter
--- OUTSIDE RECORDS SUMMARY | 2025-05-07 12:27 | XMS_ITS | Encounter Summary ---
Author Organization [employer] Address [address] [place] [address] Care Team Providers Care Video Game Maker Name Role Phone Sarah Donald MD Primary Care Provider [phone] Encounter Details Date Type Department Care Team (Latest Contact Info) Description 11/17/2020 Abstract [facility] Dental, Provider, DDS Social History Tobacco [...] Description 07/16/2025 10:00 AM EST Office Visit [facility] ADULT DENTAL [address] [place] [address] Jayda Singh documented as of this encounter Visit Diagnoses Not on filedocumented in this encounter Care Teams Video Game Maker Relationship Specialty Start Date End Date Sarah Donald MD [address] [place] [address] PCP - General Internal Medicine 08/28/18 documented as of this encounter
--- OUTSIDE RECORDS SUMMARY | 2025-05-07 12:27 | XMS_ITS | Clinical Summary ---
Author Organization [employer] Address [address] [place] [address] 7 [place] [address] Care Team Providers Care Photoengraving Etcher Name Role Phone Sarah Donald MD Primary Care Provider Allergies No known active allergies Medications finasteride (Proscar) 5 MG tablet Take 1 tablet by mouth at bed time. 09/21/19 22 Active melatonin 5 MG tablet take 1 by Oral route once a day 04/17/20 19 Active Diclofenac Sodium 1 % gelIndications: Chronic pain of left knee Apply to the affected area 3 times a day 100 g 2 05/31/20 23 Active omeprazole (PriLOSEC) [address] capsule TAKE ONE CAPSULE BY MOUTH EVERY DAY 90 capsule 2 07/24/20 23 Active orlistat (Blayne) 60 MG capsuleIndicati ons:Obesity (BMI 30-39.9) Take 1 capsule (60 mg) by mouth with breakfast, with lunch, and with evening meal. 90 capsule 11 11/30/19 24 Active simvastatin (Zocor) 40 MG tabletIndicatio ns:Hypercholest erolemia Take 1 tablet (40 mg) by mouth at bedtime. 30 tablet 11 11/30/19 24 Active Oxymetazoline HCl 1 % creamIndication s:Rosacea To apply to the affected area daily 30 g 1 11/30/19 24 Active fluticasone (Flonase) 50 MCG/ACT nasal spray Administer 1 spray into each nostril Once per day. 16 g 12/18/19 24 Active co-enzyme Q-10 30 MG capsuleIndicati ons:Hypercholes terolemia Take 1 capsule (30 mg) by mouth Once per day. 30 capsule 11 06/24/20 24 025 Active furosemide (Lasix) 20 MG tablet 1 tablet in the morning. Active metroNIDAZOLE (MetroCream) 0.75 % creamIndication s:Rosacea Apply topically 2 times daily. 45 g 1 11/05/19 25 026 Active lisinopril-hydr oCHLOROthiazide 10-12.5 MG tablet TAKE ONE TABLET BY MOUTH EVERY DAY 90 tablet 1 01/15/20 25 Active estradiol (Climara) 0.1 MG/24HR APPLY ONE PATCH ONCE A WEEK 12 patch 1 04/03/20 25 Active omeprazole (PriLOSEC) [address] capsuleIndicati ons:Gastroesoph ageal reflux disease without esophagitis TAKE ONE CAPSULE EVERY MORNING 90 capsule 2 04/04/20 25 Active furosemide (Lasix) 20 MG tabletIndicatio ns:Localized edema Take 1 tablet (20 mg) by mouth Once per day. 30 tablet 1 04/14/20 25 026 Active cholecalciferol (Vitamin D-3) 25 MCG (1000 UT) tabletIndicatio ns:Obesity (BMI 30-39.9) TAKE 1 TABLET BY MOUTH EVERY DAY 90 tablet 1 04/25/20 25 Active cholecalciferol (Vitamin D-3) 25 MCG (1000 UT) capsuleIndicati ons:Obesity (BMI 30-39.9) take 1 Capsule by Oral route once a day 30 capsule 11 11/30/19 24 025 Discontinued Active Problems Problem Noted Date Diagnosed Date [...] Encounters Date Type Department Care Team Description 04/25/2025 Refill [facility] CHC MED & PEDS [address] [place] [address] Sarah Donald MD Obesity (BMI 30-39.9) 04/14/2025 3:30 PM EDT Office Visit [facility] CHC MED & PEDS [address] [place] [address] Sarah Donald MD Hypercholesterolemia (Primary Dx); Primary hypertension; Localized edema 04/14/2025 Travel 04/11/2025 Telephone [facility] MED & PEDS [address] [place] [address] Sarah Donald MD chart prep 04/04/2025 Refill [facility] MED & PEDS [address] [place] [address] Sarah Donald MD Gastroesophageal reflux disease without esophagitis 04/03/2025 Refill [facility] MED & PEDS [address] [place] [address] Sarah Donald MD 02/14/2025 Orders Only [facility] CHC MED & PEDS [address] [place] [address] ProviderAubree MD from Last 3 Months Social History [...] Sign Reading Time Taken Comments Blood Pressure 138/69 04/14/2025 3:18 PM EDT Pulse 78 04/14/2025 3:18 PM EDT Temperature 36.6 C (97.9 F) 04/14/2025 3:18 PM EDT Respiratory Rate 20 04/14/2025 3:18 PM EDT Oxygen Saturation 99% 04/14/2025 3:18 PM EDT Inhaled Oxygen Concentration - - Weight 95.3 kg (210 lb) 04/14/2025 3:18 PM EDT Height 165.1 cm (5' 5 ) 04/14/2025 3:18 PM EDT Body Mass Index 34.95 04/14/2025 3:18 PM EDT Plan of Treatment Upcoming Encounters Date Type Department Care Team (Late st Contact Info) Description 07/16/2025 10:00 AM EST Office Visit [facility] ADULT DENTAL [address] [place] [address] Jayda Singh Health Maintenance Due Date Last Done Comments CT Colonography 1955 FIT DNA/Cologuard 1955 FIT 1955 FOBT 1955 Sigmoidoscopy 1955 DTaP/Tdap/Td Vaccines (1 - Tdap) 11/30/1974 SDOH Screening 11/30/2023 11/29/2022 COVID-19 Vaccine ( - season) 2025 08/25/2021, 11/22/2020, 11/01/2020 Influenza Vaccine (#1) 2025 Pneumococcal Vaccine: 50+ Years (1 of 1 - PCV) 06/24/2025 Postponed from 11/30/2005 (Patient Refused) Zoster Vaccines (1 of 2) 06/24/2025 Pos tponed from 11/30/2005 (Patient Refused) Dental X-Ray: Bitewings 06/26/2025 06/25/20 24, 03/07/2023, 11/17/2020, Additional history exists Dental Oral Exam 06/27/2025 12/25/2024, , 06/25/2024, Additional history exists Dental Prophylaxis 06/27/2025 12/25/2024, 1 , 03/07/2023, Additional history exists Alcohol/Substance Use Screening 11/04/2025 11/04/2024 Depression Screening 11/04/2025 11/04/2024, 11/05/19 25 Mammogram 11/29/2025 11/29/2024, 11/27/2023 Tobacco Screening 04/14/2026 04/14/2025 Colonoscopy 01/11/2027 01/11/2022 Colorectal Cancer Screening 01/11/2027 Dental X-Ray: Full Mouth 06/26/2027 06/25/2024, /04/2016 Lipid Panel 11/04/2029 11/04/2024, 06/0 01/2024, 11/27/2023, Additional history exists RSV Patients and Patients [...] patient's age to complete this topic Meningococcal B Vaccine Aged Out No l onger eligible based on patient's age to complete [...] Associated Diagnosis Comments PROPHYLAXIS - ADULT Routine 12/25/2024 1 1:00 AM EDT PERIODIC ORAL EVALUATION - ESTABLISHED PATIENT Routine 12/25/2024 11:00 AM EDT HM MAMMOGRAPHY Routine 11/29/2024 9:00 AM EDT LIPID PANEL, STANDARD Routine 11/04/2024 11:03 AM EDT Primary hypertension Hypercholesterolemi a INTRAORAL - COMPLETE SERIES OF RADIOGRAPHIC IMAGES Routine 06/25/2024 1:00 PM EDT HEPATITIS C AB W/REFL TO HCV RNA, QN, PCR Routine 11/27/2023 10:17 AM EDT Localized edema COLONOSCOPY Routine 01/11/2022 from Last 3 Months or Most Recently Relevant to Health Maintenance Results * Mammography (11/29/2024 9:00 AM EDT) Anatomical Region Laterality Modality Other us Historical Provider HEALTH MAINTENANCE Final Result * (ABNORMAL) Lipid Panel, Standard (11/04/2024 11:03 AM EDT) Triglycerides 122 <150 mg/dL [facility] Comment:Desirable Triglyceri de: less than 150 mg/dLBorderline High Triglyceride 150-199 mg/dLHigh Triglyceride: 200-499 mg/dLVery High Triglyceride: greater than or equal to 5OO mg/dL Cholesterol 204(H) <200 mg/dL [facility] Comment:Desirable Cholestero l: less than 200 mg/dLBorderline High Cholesterol: 200-239 mg/dLHigh Cholesterol: greater than 239 mg/dL LDL Cholesterol Calculated 130(H) <100 mg/dL [facility] Comment:Desirable LDL: less than 100 mg/dLNear Optimal/Above Optimal LDL: 110- 129 mg/dLBorderline High LDL: 130-159 mg/dLHigh LDL: 160-189 mg/dLVery High LDL: greater than or equal to 190 mg/dL HDL Cholesterol 50 >40 mg/dL [facility] Comment:Desirable HDL: great er than 40 mg/dL Note: This HDL assay may give artificially low results in patients with liver disease. Blood Venous blood specimen / Unknown 11/04/2024 11:03 AM EDT 11/04/2024 2:18 PM EDT us Sarah Donald MD LAB BLOOD ORDERABLES Final Result Performing Organization Address [facility] Co de Phone Number [facility] [address] [place] [phone] * Hepatitis C Antibody with Reflex to HCV, RNA, Quantitative, Real-Time PCR (11/27/2023 10:17 AM EDT) Hepatitis C Antibody Nonreactive Nonreactive [facility] Comment:Antibodies to HCV no t detected; does not exclude early acuteHCV infection. Blood Venous blood specimen / Unknown 11/27/2023 10:17 AM EDT 11/27/2023 2:21 PM EDT us Sarah Donald MD LAB BLOOD ORDERABLES Final Result Performing Organization Address [facility] Co de Phone Number [facility] [address] [place] [phone] * Hm Colonoscopy (01/11/2022) Colonoscopy Normal Normal Marika Najera - 01/11/2022 Recommended 5 years us Historical Provider HEALTH MAINTENANCE Final Result from Last 3 Months or Most Recently Relevant to Health Maintenance Insurance [employer] MEDICARE REPLACEMENT DENTAL - HSN PARTIAL (MEDICAID) DENTAL - [employer] DENTAL PPO Care Teams Photoengraving Etcher Relationship Specialty Start Date End Date Sarah Donald MD [address] [place] [phone] PCP - General Internal Medicine 08/28/18
--- OUTSIDE RECORDS SUMMARY | 2025-05-07 12:27 | XMS_ITS | Patient Health Record ---
Author Organization [facility] Address [address] [facility] [address] [place] [address] Care Team Providers Care Operational Intelligence Analyst Name Role Phone Sarah Donald Primary Care Provider Unavail able JOLENE DE LEON Unavailable [phone] Allergies No Known Allergies Reason For Referral No Information Medications Medication SIG (Take, Route, Frequency, Duration) Notes Start Date End Date Status Omeprazole 20 MG 1 capsule 30 minutes before morning meal Orally Once a day Active Lisinopril-hydroCHLOROthi azide 10-12.5 MG 1 tablet Orally Once a day Active Estradiol 0.1 MG/24HR 1 patch to skin Transdermal Active Vitamin D 25 MCG (1000 UT) 1 tablet Orally Once a day Active Oxymetazoline HCl 1 % 1 application Externally Once a day Not-Taking Melatonin 5 MG 1 tablet in the even ing Orally Once a day Not-Taking Furosemide 20 MG 1 tablet Orally Once a day Not-Taking Finasteride 5 MG 1 tablet Orally Once a day Not-Taking Diclofenac Sodium 1 % as directed Externally Not-Taking Simvastatin 40 MG 1 tablet in the even ing Orally Once a day Active Problems Problem Type SNOMED Code ICD Code Onset Dates Problem Status W/U Status Risk Notes Problem Plantar fasciitis (262456362) Plantar fasciitis (M72.2) Active confirmed Problem Tightness of right gastrocnemius muscle (finding) (2080964614097780 6) Gastrocnemius equinus of right lower extremity (M62.461) Active confirmed Vital Signs Heart Rate 77 /min 04/24/2025 Temperature 97.3 degrees Fahrenheit 04/24/2025 Respiratory Rate 16 /min 04/24/2025 Height 5ft 5.5in in 04/24/2025 Weight 207.5 lbs 04/24/2025 BMI 34 kg/m2 04/24/2025 Procedures Procedure Date Ordered Date Performed Result Body Sit e INJ TENDON SHEATH/LIGAMENT/FASCIA 03/14/2025 N/ A Encounters Encounter Location Date Provider Diagnosis [facility] [address] [address] 03/14/2025 JOLENE HALEY Pain of right heel M79.671 ; Plantar fasciitis M72.2 and Gastrocnemius equinus of right lower extremity M62.461 [facility] [address] [address] 04/24/2025 JOLENE HALEY Pain of right heel M79.671 ; Plantar fasciitis M72.2 and Gastrocnemius equinus of right lower extremity M62.461 Assessments Encounter Date Diagnosis (ICD Code) Assessment Notes Treatment Notes Treatment Clinical Notes Section Notes 03/14/2025 Pain of right heel (ICD-10 - M79.671) 03/14/2025 Plantar fasciitis (ICD-10 - M72.2) Patient examined and evaluated today. Past medical history reviewed. [facility] radiographs of the right foot were taken in the office and reviewed with the patient. I discussed the etiology of plantar fasciitis. Conservative treatment options were reviewed, which consisted of calf stretching exercises, stiff soled shoe gear, icing, over the counter and custom foot orthoses, physical therapy, oral anti-inflammatorie s, steroid injection, night splint/Angie sock, ESWT, and immobilization with CAM boot or cast for 6 weeks. Patient has agreed to try calf stretching exercises two times daily. The patient was educated and shown the proper way to stretch. A hand out was given in todays visit with instructions. Advised patient to ice 20 minutes on and 20 minutes off for an hour before bed. She opted to have the steroid injection. This was given into the right plantar fascia. She tolerated this well. I advised stiffer suppotive shoe gear and avoiding all barefoot walking. Patient will follow back in 6 weeks. I encouraged the patient to call with any questions or concerns in the meantime. 04/24/2025 Pain of right heel (ICD-10 - M79.671) 04/24/2025 Plantar fasciitis (ICD-10 - M72.2) Patient examined and evaluated today. Past medical history reviewed. She has had overall improvements in her right plantar heel pain since her last visit and injection. She has some residual post static dyskinesia. I discussed that this may slowly resolve with continued stretching, icing, and good supportive shoe gear. We did discuss the option of a repeat injection as well. I advised we hold off on repeating the injection today due to her acute right hand symptoms. I do not want to interfer with any treatment that she may get for this today. I did give her some info on [facility] urgent care if she is unable to get into [facility] today. We booked her an appt for next week to follow up about the heel and repeat injection if needed. She was agreeable with this. I encouraged her to call if she has any additional questions or concerns. 04/24/2025 Gastrocnemius equinus of right lower extremity (ICD-10 - M62.461) 03/14/2025 Gastrocnemius equinus of right lower extremity (ICD-10 - M62.461) Plan Of Treatment Pending Test Test Name Order Date X ray : Foot, left 3v 10/24/2023 INJ TENDON SHEATH/LIGAMENT/FASCIA 2024 Insurance Providers Payer Name Payer Address Payer Phone Subscriber Number Group Number Insured Name Patient Relationship to Insured Coverage Start Date Coverage End Date [employer] Medicare [address] [place] [address] [id number] Akilah Caro Self - patient is the insured Medications Administered Medication Instructions Date of Administration Dosage Notes dexAMETHasone Sod Phosphate PF 03/14/2025 2 mg Kenalog 03/14/2025 5 mg Medical (General) History Medical History History ICD Code Lower back pain hypertension hypercholesterolemia Lower extremity peripheral edema chronic pain of left knee + COVID 2021 COVID vaccinated X 3 ([employer]) Surgical History Surgery Date(Month/Year) hysterectomy 2002 spinal fusion 2005 right shoulder surgery 2021 bilateral carpal tunnel release Hospitalization History Reason Date(Month/Year) spinal fusion 2006 hysterectomy 2001 vaginal delivery (boy) 1979 vaginal delivery (boy) 1974
--- OUTSIDE RECORDS SUMMARY | 2025-05-07 12:27 | XMS_ITS | Encounter Summary ---
Author Organization [employer] Address [address] [address] Care Team Providers Care Customer Service Analyst Name Role Phone Sarah Donald MD Primary Care Provider [phone]- [phone] Encounter Details Date Type Department Care Team ([facility] st Contact Info) Description 12/13/2023 Orders Only [facility] MED & PEDS [address] [place], [place] [id number] Sarah Donald MD [address] [place] [address] Harika (Primary Dx) Social History Tobacco Use [...] Visit [facility] ADULT D[facility] [address] [place] [address] Jayda Singh documented as of this encounter Visit Diagnoses Diagnosis Rosacea- Primary documented in this encounter Additional Health Concerns Assessment Noted Time PHQ-9 Depression Total Score: 3 11/30/19 23 1:45 PM EDT documented as of this encounter Care Teams Customer Service Analyst Relationship Specialty Start Date End Date Sarah Donald MD [address] [place] [address] PCP - General Internal Medicine 08/28/18 documented as of this encounter
--- OUTSIDE RECORDS SUMMARY | 2025-05-07 12:27 | XMS_ITS | Encounter Summary ---
Author Organization [employer] Address [address] [facility] [address] [place] [address] Care Team Providers Care Shirt Folder Name Role Phone Sarah Donald MD Primary Care Provider +1- [phone] Encounter Details Date Type Department Care Team (Late st Contact Info) Description 06/29/[address] [facility] MEDICINE [address] [place] [address] Sarah Donald MD [address] [place] [address] Social History Tobacco Use Types Packs/Day Years [...] Description 07/16/2025 10:00 AM EST Office Visit [facility] ADULT DENTAL [address] [place] [address] Jayda Singh documented as of this encounter [...] documented as of this encounter Care Teams Shirt Folder Relationship Specialty Start Date End Date Sarah Donald MD [address] [place] [address] PCP - General Internal Medicine 08/28/18 documented as of this encounter
--- OUTSIDE RECORDS SUMMARY | 2025-05-07 12:27 | XMS_ITS | Encounter Summary ---
Author Organization [employer] Address [address] [facility] [address] [place] [address] Care Team Providers Care Silk Weaver Name Role Phone Sarah Donald MD Primary Care Provider +1- [phone] Reason for Visit * Reason Onset Date Comments Med Refill 02/01/2024 Encounter Details Date Type Department Care Team ([facility] st Contact Info) Description 02/01/2024 Refill [facility] MED & PEDS [address] [place] [address] Sarah Donald MD [address] [place] [address] Gastroesophageal reflux disease without esophagitis Social History [...] Upcoming Encounters Date Type Department Care Team ([facility] st Contact Info) Description 07/16/2025 10:00 AM EST Office Visit [facility] ADULT DENTAL [address] [place] [address] Jayda Singh documented as of this encounter Visit Diagnoses Diagnosis Gastroesophageal reflux disease without esophagitis Esophageal reflux documented in this encounter Additional Health Concerns Assessment Noted Time PHQ-9 Depression Total Score: 3 11/30/19 23 1:45 PM EDT documented as of this encounter Care Teams Silk Weaver Relationship Specialty Start Date End Date Sarah Donald MD [address] [place] [address] PCP - General Internal Medicine 08/28/18 documented as of this encounter
--- OUTSIDE RECORDS SUMMARY | 2025-05-07 12:27 | XMS_ITS | Encounter Summary ---
Author Organization [employer] Address [address] [address] Care Team Providers Care Greenskeeper Head Name Role Phone Sarah Donald MD Primary Care Provider +1- [phone] Reason for Visit * Reason Onset Date Comments Prior Authorization 12/07/2023 Encounter Details Date Type Department Care Team (Late st Contact Info) Description 12/07/2023 Telephone [facility] MEDICINE [address] [place] [address] Sarah Donald MD [address] [place] [address] Prior Authorization Social History Tobacco Use Types [...] Description 07/16/2025 10:00 AM EST Office Visit [facility] ADULT DENTAL [address] [place] [address] Jayda Singh documented as of this encounter Visit Diagnoses Not on filedocumented in this encounter Additional Health Concerns Assessment Noted Time PHQ-9 Depression Total Score: 3 11/30/19 23 1:45 PM EDT documented as of this encounter Care Teams Greenskeeper Head Relationship Specialty Start Date End Date Sarah Donald MD [address] [place] [address] PCP - General Internal Medicine 08/28/18 documented as of this encounter
--- OUTSIDE RECORDS SUMMARY | 2025-05-07 12:27 | XMS_ITS | Encounter Summary ---
Author Organization [employer] Address [address] [place] [address] Care Team Providers Care Devulcanizer Head Name Role Phone Sraah Donald MD Primary Care Provider +1- [phone] Encounter Details Date Type Department Care Team (Latest Contact Info) Description 05/31/2019 Abstract [facility] CONVERSION[facility] Dental, Provider, DDS Social History [...] Description 07/16/2025 10:00 AM EST Office Visit [facility] ADULT DENTAL [address] [place] [address] Jayda Singh documented as of this encounter Visit Diagnoses Not on filedocumented in this encounter Care Teams Devulcanizer Head Relationship Specialty Start Date End Date Sarah Donald MD [address] [place] [address] PCP - General Internal Medicine 08/28/18 documented as of this encounter
--- OUTSIDE RECORDS SUMMARY | 2025-05-07 12:28 | XMS_ITS | Encounter Summary ---
Author Organization [employer] Address [address] [address] Care Team Providers Care Gender Studies Professor Name Role Phone Sarah Donald MD Primary Care Provider +1- [phone] Encounter Details Date Type Department Care Team ([facility] st Contact Info) Description 11/04/2024 Orders Only [facility] MEDICINE [address] [place] [address] Sarah Donald MD [address] [place] [address] Social History Tobacco Use Types Packs/Day Years [...] AM EDT documented as of this encounter Functional Status * Over the past 2 weeks, how often have you been bothered by any of the following problems? Question Answer Date of Assessment Author Patient Health Questionnaire-2 Score 0 10/26 9:53 AM EDT Rin Hdz [place] * Little interest or pleasure in doing things Answer Date of Assessment Author Not at all 11/04/2024 9:53 AM EDT Rin Hdz [place] * Feeling down, depressed, or hopeless Answer Date of Assessment Author Not at all 11/04/2024 9:53 AM EDT Rin Hdz [place] * Trouble falling or staying asleep, or sleeping too much Answer Date of Assessment Author Not at all 11/04/2024 9:53 AM EDT Rin Hdz [place] * Feeling tired or having little energy Answer Date of Assessment Author Not at all 11/04/2024 9:53 AM EDT Rin Hdz [place] * Poor appetite or overeating Answer Date of Assessment Author Not at all 11/04/2024 9:53 AM EDRin Varghese [place] * Feeling bad about yourself - or that you are a failure or have let yourself or your family down Answer Date of Assessment Author Not at all 11/04/2024 9:53 AM EDT Rin Hdz [place] * Trouble concentrating on things, such as reading the newspaper or watching television Answer Date of Assessment Author Not at all 11/04/2024 9:53 AM EDT Rin Hdz [place] * Moving or speaking so slowly that other people could have noticed? Or the opposite - being so fidgety or restless that you have been moving around a lot more than usual. Answer Date of Assessment Author Not at all 11/04/2024 9:53 AM EDT Rin Hdz [place] * Thoughts that you would be better off or hurting yourself in some way Answer Date of Assessment Author Not at all 11/04/2024 9:53 AM EDT Rin Hdz [place] * Patient Health Questionnaire-9 Score Answer Date of Assessment Author 0 11/04/2024 9:53 AM EDT Rin Hdz [place] documented as of this encounter Plan of Treatment Upcoming Encounters Date Type Department Care Team (Late st Contact Info) Description 07/16/2025 10:00 AM EST Office Visit [facility] ADULT DENTAL [address] [place] [address] Jayda Singh documented as of this encounter Visit Diagnoses Not on filedocumented in this encounter Additional Health Concerns Assessment Noted Time PHQ-9 Depression Total Score: 0 11/05/19 25 9:53 AM EDT documented as of this encounter Care Teams Gender Studies Professor Relationship Specialty Start Date End Date Sarah Donald MD [address] [place] [address] PCP - General Internal Medicine 08/28/18 documented as of this encounter
--- OUTSIDE RECORDS SUMMARY | 2025-05-07 12:28 | XMS_ITS | Clinical Summary ---
Author Organization [facility] Address [address] [place] [address] Care Team Providers Care Shipyard Painter Apprentice Name Role Phone Unavailable Primary Care Provider Unavailabl e Social History Tobacco Use Types Packs/Day Years Used Date Smoking Tobacco: Never Assessed Comments Unknown Sex and Gender Information Value Date Recorded Sex Assigned at Not on file Legal Sex Female 2:13 PM EDT Gender Identity Not on file Sexual Orientation Not on file Plan of Treatment Health Maintenance Due Date Last Done Comments Advance Care Planning 1955 Hepatitis C Virus Screening 1955 DTaP/Tdap/Td Vaccines (1 - Tdap) 11/30/1974 Pneumococcal Vaccines 50+ (1 of 1 - PCV) 11/30/2005 Zoster (Shingles) Vaccine (1 of 2) 11/30/2005 COVID-19 Vaccine ( - 2023-2 5 season) 2025 RSV Vaccine 60 years and old er and Patients (1 - 1-dose 75+ series) 11/30/2030 Hepatitis B Vaccines Aged Out No long er eligible based on patient's age to complete this topic
[2025-05-07 15:21] LABS: Alanine Aminotransferase 30 U/L (0-31); Albumin Level 4.1 g/dL (3.5-5.0); Alkaline Phosphatase 107 U/L (39-117); Anion Gap 10 (12-20); Aspartate Amino Transferase 25 U/L (5-31); Blood Urea Nitrogen 16 mg/dL (9-16); Calcium 9.1 mg/dL (8.4-10.2); Carbon Dioxide 29 mmol/L (22-29); Chloride 106 mmol/L (96-108); Estimated Glomerular Filt Rate > 60; Potassium 3.9 mmol/L (3.3-5.1); Sodium 141 mmol/L (135-145); Total Protein 7.0 g/dL (6.5-8.0)
== END 2025-05-07 10:16 | disposition home or self-care (01) ==
LOC: HO.CHCLDS 10:15
PROVIDERS: Visit Provider Internal Medicine
DX: R60.0 Localized edema (principal); E78.00 Pure hypercholesterolemia, unspecified
CPT/HCPCS: 36415; 80053; 82043; 82570; 84443

== ENCOUNTER 2025-07-21 18:26 | Outpatient (REF) | payer MEDICARE, SELFPAY ==
--- OUTSIDE RECORDS SUMMARY | 2025-07-16 10:15 | XMS_ITS | Encounter Summary ---
Author Organization [employer] Address [address] [facility] [address] [place] [address] Care Team Providers Care Dancing Instructor Name Role Phone Sarah Donald MD Primary Care Provider +1- [phone] Reason for Visit * Reason Comments Routine Cleaning Dental Exam Encounter Details Date Type Department Care Team ([facility] st Contact Info) Description 07/16/2025 10:15 AM EST Office Visit [facility] AD[facility] [address] [place] [address] Jayda Singh Dental calculus (Primary Dx); Dental plaque Social History Tobacco Use Types Packs/Day Years [...] the past 12 months, has t he [employer], gas, oil or water [employer] threatened to shut off services in your [...] Sign Reading Time Taken Comments Blood Pressure 128/82 07/16/2025 10:19 AM EST Pulse - - Temperature - - Respiratory Rate - - Oxygen Saturation - - Inhaled Oxygen Concentration - - Weight - - Height - - Body Mass Index - - documented in this encounter Progress Notes * Jayda Singh - 07/16/2025 10:15 AM EST Patient ID: Akilah Caro is a 69 y.o. female. Time Out: Timeout Date: 07/16/25, Timeout Time: 1020 Location: [facility] Tooth: Maxilla and Mandible Procedure: Exam, X-rays, and Prophylaxis Verified the above with patient, underwriting assistant, and provider. Confirmed via patient's chart, intraorally and by radiographs. Windows Mobile Developer: not applicable Medical Hx: Vitals: Blood pressure 128/82. Medications, Med Hx reviewed with patient and updated in chart. Treatment Provided Dental procedures in this visit D1110 - PROPHYLAXIS - ADULT (Completed) Service provider: Jayda Singh Billing provider: Maribell Mehta DDS D0274 - BITEWINGS - 4 RADIOGRAPHIC IMAGES (Completed) Service provider: Jayda Singh Billing provider: Maribell Mehta DDS D0220 - INTRAORAL - PERIAPICAL FIRST RADIOGRAPHIC IMAGE (Completed) Service provider: Jayda Singh Billing provider: Maribell Mehta DDS D0230 - INTRAORAL - PERIAPICAL EACH ADDITIONAL RADIOGRAPHIC IMAGE (Completed) Service provider: Jayda Singh Billing provider: Maribell Mehta DDS D9450 - CASE PRESENTATION, DETAILED AND EXTENSIVE TREATMENT PLANNING (Completed) Service provider: Jayda Singh Billing provider: Maribell Mehta DDS D1330 - ORAL HYGIENE INSTRUCTIONS (Completed) Service provider: Jayda Singh Billing provider: Maribell Mehta DDS D0120 - PERIODIC ORAL EVALUATION - ESTABLISHED PATIENT (Completed) Service provider: Maribell Mehta DDS Billing provider: Maribell Mehta DDS Instruments Used: Ultrasonic Scalers, Hand Scalers, and Prophy angle Fluoride: N/A Oral Cancer Screening: No lesions Head/Neck Exam: No Lesions Calculus: Moderate and Localized Plaque: Light and Generalized Stain: Light and Localized Bleeding: Moderate and Generalized Gingiva: Recession- generalized and Erythematous OH: Poor Perio Chart: Not Completed- Completed on 12/25/2024. Dental exam done by Dr. Mehta. Oral hygiene instructions provided to patient including brushing technique and flossing. Recommendations: [place] two times daily, modified keyes technique, Floss daily, Electric toothbrush, Soft bristle toothbrush, [place] Tongue, Anti-sensitivity toothpaste Recall Frequency: 6 mo NV: Sikh Hygienist: Jayda Singh RDH * Maribell Mehta DDS - 07/16/2025 10:15 AM EST Patient ID: Akilah Caro is a 69 y.o. female. Time Out: Date: 07/16/2025 Location: [facility] Tooth: Maxilla and Mandible Procedure: Exam Verified the above with patient, underwriting assistant, and provider. Confirmed via patient's chart, intraorally and by radiographs. Windows Mobile Developer: not applicable Periodic Exam - Chief Complaint(s) - None Head/Neck/Soft Tissue Exam: Lips - WNL Cheeks- WNL Tongue- WNL Floor of mouth- WNL Palate- WNL Pharynx- WNL Lymph nodes- WNL TMJ/Occlusal - WNL Caries Risk - reviewed x-rays /intra-oral exam complete and caries diagnosed and treatment planned for restorative Perio Risk plague and calculus noted./areas of localized gingivitis /periodontitis. NV periodontal charting to be done to evaluate for SRPs Intraoral Exam completed, radiographs reviewed, caries diagnosed and treatment planned for restorative. Risks/CC Addressed - Yes Oral Hygiene Instruction Provided - Yes Referrals - none NV: op Dentist: Maribell Mehta DDSPatient ID: Akilah Caro is a 69 y.o. female. documented in this encounter Plan of Treatment Upcoming Encounters Date Type Department Care Team (Late st Contact Info) Description 07/31/2025 2:30 PM EST Office Visit [facility] AD[facility] [address] [place] [address] Jl Patrick DDS [address] [facility] [place] [address] 01/15/2026 10:15 AM EDT Office Visit [facility] AD[facility] [address] [place] [address] Jayda Singh Scheduled Orders Name Type Priority Associated Diagnoses Orde r Schedule 21 B 21 B RESIN-BASED COMPOSITE - 1 SURF, POSTERIOR Dental Routine [address] arting 07/16/2025 Full Full PROPHYLAXIS - ADULT Dental Routine [address] arting 07/16/2025 documented as of this encounter Procedures Procedure Name Priority Date/Time Associated Diagnosis Comments PROPHYLAXIS - ADULT Routine 07/16/2025 1 0:15 AM EST PERIODIC ORAL EVALUATION - ESTABLISHED PATIENT Routine 07/16/2025 10:15 AM EST ORAL HYGIENE INSTRUCTIONS Routine 2024 10:15 AM EST INTRAORAL - PERIAPICAL FIRST RADIOGRAPHIC IMAGE Routine 07/16/2025 10:15 AM EST INTRAORAL - PERIAPICAL EACH ADDITIONAL RADIOGRAPHIC IMAGE Routine 07/16/2025 10:15 AM EST CASE PRESENTATION, DETAILED AND EXTENSIVE TREATMENT PLANNING Routine 07/16/2025 10:15 AM EST BITEWINGS - 4 RADIOGRAPHIC IMAGES Routine 07/16/2025 10:15 AM EST documented in this encounter Visit Diagnoses Diagnosis Dental calculus- Primary Accretions on teeth Dental plaque Accretions on teeth documented in this encounter Additional Health Concerns Assessment Noted Time PHQ-9 Depression Total Score: 0 11/05/19 25 9:53 AM EDT documented as of this encounter Care Teams Dancing Instructor Relationship Specialty Start Date End Date Sarah Donald MD [address] [place] [address] PCP - General Internal Medicine 08/28/18 documented as of this encounter
--- OUTSIDE RECORDS SUMMARY | 2025-07-21 14:00 | XMS_ITS | Encounter Summary ---
Author Organization [employer] Address [address] [place] [address] Care Team Providers Care Coal Mill Operator Name Role Phone Sarah Donald MD Primary Care Provider +1- [phone] Reason for Referral * Consultation (Routine) - Pending Review Specialty Diagnoses / Procedures Referred By Cristiano heller Referred To Contact Urology Diagnoses Stress incontinence Sujatha Lock MD [address] [place] [address] Phone: tel: fax: Referral ID Status Reason Start Date Expiration Date Visits Requested Visits Authorized [id number] Pending Review Specialty Services Required 07/21/2026 1 1 Encounter Details Date Type Department Care Team (Late st Contact Info) Description 07/21/2025 2:00 PM EST Office Visit [facility] CHC MED & PEDS [address] [place] [address] Sujatha Lock MD [address] [place] [address] Dysuria (Primary Dx); Stress incontinence Social History Tobacco Use Types Packs/Day Years [...] Sign Reading Time Taken Comments Blood Pressure 124/66 07/21/2025 1:42 PM EST Pulse 78 07/21/2025 1:42 PM EST Temperature 37.1 C (98.8 F) 07/21/2025 1:42 PM EST Respiratory Rate 20 07/21/2025 1:42 PM EST Oxygen Saturation 98% 07/21/2025 1:42 PM EST Inhaled Oxygen Concentration - - Weight 91.5 kg (201 lb 12.8 oz) 07/21/2025 1:42 PM EST Height 166.4 cm (5' 5.5 ) 07/21/2025 1:42 PM EST Body Mass Index 33.07 07/21/2025 1:42 PM EST documented in this encounter Plan of Treatment Upcoming Encounters Date Type Department Care Team (Late st Contact Info) Description 07/31/2025 2:30 PM EST Office Visit [facility] ADULT DENTAL [address] [place] [address] Jl Patrick DDS [address] [facility] [place] [address] 01/15/2026 10:15 AM EDT Office Visit [facility] ADULT DENTAL [address] [place] [address] Jayda Singh Scheduled Orders Name Type Priority Associated Diagnoses Orde r Schedule Bacterial Vaginosis Panel Microbiology Routine Dysuria Ordered: 07/21/2025 Scheduled Referrals Name Type Priority Associated Diagnoses Orde r Schedule Referral to Urology Outpatient Referral Routine Stress incontinence Expected: 07/21/2025 (Approximate), Expires: 07/21/2026 documented as of this encounter Procedures Procedure Name Priority Date/Time Associated Diagnosis Comments POCT URINALYSIS DIPSTICK Routine 07/21/2025 2:26 PM EST Dysuria documented in this encounter Results * POCT Urinalysis (07/21/2025 2:26 PM EST) Color, UA Yellow Clarity, UA Clear Glucose, UA Negative Bilirubin, UA Negative Ketones, UA Positive Comment:trace Spec Grav, UA 1.025 Blood, UA Negative Negative, None Detected pH, UA 6.0 Protein, UA Negative Urobilinogen, UA 1.0 Leukocytes, UA Negative Negative, Rare, Trace Nitrite, UA Negative Negative, None Detected Appearance, UA clear QC Media Lot # [id number] Lot# Expiration Date [id number] Urine (Urine, Random) 07/21/2025 2:26 PM EST Sujatha Lock MD POINT OF CARE TEST ENTER/EDIT ORDERABLES Final Result documented in this encounter Visit Diagnoses Diagnosis Dysuria- Primary Stress incontinence Female stress incontinence documented in this encounter Additional Health Concerns Assessment Noted Time PHQ-9 Depression Total Score: 0 11/05/19 25 9:53 AM EDT documented as of this encounter Care Teams Coal Mill Operator Relationship Specialty Start Date End Date Sarah Donald MD [address] [place] [address] PCP - General Internal Medicine 08/28/18 documented as of this encounter
--- OUTSIDE RECORDS SUMMARY | 2025-07-21 20:35 | XMS_ITS | Encounter Summary ---
Author Organization [employer] Address [address] [facility] 7 [place] [address] Care Team Providers Care Inspector Golf Ball Name Role Phone Sarah Donald MD Primary Care Provider +1- [phone] Encounter Details Date Type Department Care Team (Late st Contact Info) Description 06/29/2023 Abstract [facility] MEDICINE [address] [place] [address] Sarah Donald MD [address] [place] [address] Social History Tobacco Use Types Packs/Day Years [...] Description 07/31/2025 2:30 PM EST Office Visit [facility] ADULT DENTAL [address] [place], [place] [phone] Jl Patrick DDS [address] [place] [address] 01/15/2026 10:15 AM EDT Office Visit [facility] ADULT DENTAL [address] [place] [address] Jayda Singh documented as of this encounter Procedures Procedure Name Priority Date/Time Associated Diagnosis Comments COLONOSCOPY Routine 01/11/2022 documented in this encounter Results * Hm Colonoscopy (01/11/2022) Colonoscopy Normal Normal Narrative JollyMarika lopez - 01/11/2022 Recommended 5 years Historical Provider HEALTH MAINTENANCE Final Result documented in this encounter Visit Diagnoses Not on filedocumented in this encounter Additional Health Concerns Assessment Noted Time PHQ-9 Depression Total Score: 3 11/30/19 23 1:45 PM EDT documented as of this encounter Care Teams Inspector Golf Ball Relationship Specialty Start Date End Date Sarah Donald MD [address] [place] [address] PCP - General Internal Medicine 08/28/18 documented as of this encounter
--- OUTSIDE RECORDS SUMMARY | 2025-07-21 20:35 | XMS_ITS | Encounter Summary ---
Author Organization [employer] Address [address] [address] Care Team Providers Care Pretzel Twister Name Role Phone Sarah Donald MD Primary Care Provider +1- [phone] Reason for Visit * Reason Onset Date Comments Prior Authorization 12/07/2023 Encounter Details Date Type Department Care Team (Late st Contact Info) Description 12/07/2023 Telephone [facility] MEDICINE [address] [place] [address] Sarah Donald MD [address] [place] [address] Prior Authorization Social History Tobacco Use Types [...] Description 07/31/2025 2:30 PM EST Office Visit [facility] ADULT DENTAL [address] [place] [address] Jl Patrick DDS [address] [place] [address] 01/15/2026 10:15 AM EDT Office Visit [facility] ADULT DENTAL [address] [place] [address] Jayda Singh documented as of this encounter Visit Diagnoses Not on filedocumented in this encounter Additional Health Concerns Assessment Noted Time PHQ-9 Depression Total Score: 3 11/30/19 23 1:45 PM EDT documented as of this encounter Care Teams Pretzel Twister Relationship Specialty Start Date End Date Sarah Donald MD [address] [place] [address] PCP - General Internal Medicine 08/28/18 documented as of this encounter
--- OUTSIDE RECORDS SUMMARY | 2025-07-21 20:35 | XMS_ITS | Encounter Summary ---
Author Organization [employer] Address [address] [address] Care Team Providers Care Pull Through Hooker Name Role Phone Sarah Donald MD Primary Care Provider [phone]- [phone] Encounter Details Date Type Department Care Team ([facility] st Contact Info) Description 12/13/2023 Orders Only [facility] CHC MED & PEDS [address] [place], [place] [phone] Sarah Donald MD [address] [place] [address] Harika (Primary Dx) Social History Tobacco Use [...] Description 07/31/2025 2:30 PM EST Office Visit [facility] ADULT DENTAL [address] [place] [address] Jl Patrick, ANAMIKA [address] [place] [address] 01/15/2026 10:15 AM EDT Office Visit [facility] ADULT DENTAL [address] [place] [address] Jayda Singh documented as of this encounter Visit Diagnoses Diagnosis Rosacea- Primary documented in this encounter Additional Health Concerns Assessment Noted Time PHQ-9 Depression Total Score: 3 11/30/19 23 1:45 PM EDT documented as of this encounter Care Teams Pull Through Hooker Relationship Specialty Start Date End Date Sarah Donald MD [address] [place] [address] PCP - General Internal Medicine 08/28/18 documented as of this encounter
--- OUTSIDE RECORDS SUMMARY | 2025-07-21 20:35 | XMS_ITS | Encounter Summary ---
Author Organization [employer] Address [address] [place] [address] Care Team Providers Care Hemstitching Machine Operator Name Role Phone Sarah Donald MD Primary Care Provider +1- [phone] Encounter Details Date Type Department Care Team (Latest Contact Info) Description 05/31/2019 Abstract [facility] CONVERSIONS Dental, Provider, DDS Social History Tobacco [...] Description 07/31/2025 2:30 PM EST Office Visit [facility] ADULT DENTAL [address] [place] [address] Jl Patrick DDS [address] [place] [address] 01/15/2026 10:15 AM EDT Office Visit [facility] ADULT DENTAL [address] [place], [place] [phone] Jayda Singh documented as of this encounter Visit Diagnoses Not on filedocumented in this encounter Care Teams Hemstitching Machine Operator Relationship Specialty Start Date End Date Sarah Donald MD [address] [place] [address] PCP - General Internal Medicine 08/28/18 documented as of this encounter
--- OUTSIDE RECORDS SUMMARY | 2025-07-21 20:35 | XMS_ITS | Encounter Summary ---
Author Organization [employer] Address 75 [facility] [address] [place] [address] Care Team Providers Care Tetryl Wringer Operator Name Role Phone Sarah Donald MD Primary Care Provider +1- [phone] Reason for Visit * Reason Onset Date Comments Med Refill 02/01/2024 Encounter Details Date Type Department Care Team ([facility] st Contact Info) Description 02/01/2024 Refill [facility] MED [facility] PEDS [address] [place] [address] Sarah Donald MD [address] [place] [address] Gastroesophageal reflux disease without esophagitis Social History [...] Description 07/31/2025 2:30 PM EST Office Visit [facility] ADULT DENTAL [address] [place] [address] Jl Patrick DDS [address] [place] [address] 01/15/2026 10:15 AM EDT Office Visit [facility] ADULT DENTAL [address] [place] [address] Jayda Singh documented as of this encounter Visit Diagnoses Diagnosis Gastroesophageal reflux disease without esophagitis Esophageal reflux documented in this encounter Additional Health Concerns Assessment Noted Time PHQ-9 Depression Total Score: 3 11/30/19 23 1:45 PM EDT documented as of this encounter Care Teams Tetryl Wringer Operator Relationship Specialty Start Date End Date Sarah Donald MD [address] [place] [address] PCP - General Internal Medicine 08/28/18 documented as of this encounter
--- OUTSIDE RECORDS SUMMARY | 2025-07-21 20:35 | XMS_ITS | Encounter Summary ---
Author Organization [employer] Address [address] [address] Care Team Providers Care Fruit Picker Name Role Phone Sarah Donald MD Primary Care Provider +1- [phone] Encounter Details Date Type Department Care Team ([facility] st Contact Info) Description 01/29/2024 Orders Only [facility] CHC MED & PEDS [address] [place], [place] [phone] Sarah Donald MD [address] [place] [address] Social History Tobacco Use Types Packs/Day Years [...] Description 07/31/2025 2:30 PM EST Office Visit [facility] ADULT DENTAL [address] [place] [address] Jl Patrick DDS [address] [place] [address] 01/15/2026 10:15 AM EDT Office Visit [facility] ADULT DENTAL [address] [place] [address] Jayda Singh documented as of this encounter Visit Diagnoses Not on filedocumented in this encounter Additional Health Concerns Assessment Noted Time PHQ-9 Depression Total Score: 3 11/30/19 23 1:45 PM EDT documented as of this encounter Care Teams Fruit Picker Relationship Specialty Start Date End Date Sarah Donald MD [address] [place] [address] PCP - General Internal Medicine 08/28/18 documented as of this encounter
--- OUTSIDE RECORDS SUMMARY | 2025-07-21 20:35 | XMS_ITS | Encounter Summary ---
Author Organization [employer] Address [address] [address] Care Team Providers Care Certified Master Safecracker Name Role Phone Sarah Donald MD Primary Care Provider +1- [phone] Reason for Visit * Reason Onset Date Comments Med Refill 02/01/2024 Encounter Details Date Type Department Care Team ([facility] st Contact Info) Description 02/01/2024 Refill [facility] CHC MED & PEDS [address] [place] [address] Sarah Donald MD [address] [place] [address] Hypercholesterolemia Social History Tobacco Use Types Packs/Day [...] Description 07/31/2025 2:30 PM EST Office Visit [facility] ADULT DENTAL [address] [place] [address] Jl Patrick DDS [address] [place] [address] 01/15/2026 10:15 AM EDT Office Visit [facility] ADULT DENTAL [address] [place] [address] Jayda Singh documented as of this encounter Visit Diagnoses Diagnosis Hypercholesterolemia Pure hypercholesterolemia documented in this encounter Additional Health Concerns Assessment Noted Time PHQ-9 Depression Total Score: 3 11/30/19 23 1:45 PM EDT documented as of this encounter Care Teams Certified Master Safecracker Relationship Specialty Start Date End Date Sarah Donald MD [address] [place] [address] PCP - General Internal Medicine 08/28/18 documented as of this encounter
--- OUTSIDE RECORDS SUMMARY | 2025-07-21 20:35 | XMS_ITS | Encounter Summary ---
Author Organization [employer] Address [address] [place] [address] Care Team Providers Care Legal Editor Name Role Phone Sarah Donald MD Primary Care Provider +1- [phone] Encounter Details Date Type Department Care Team (Latest Contact Info) Description 11/17/2020 Abstract [facility] CONVERSIONS Dental, Provider, DDS Social History [...] Description 07/31/2025 2:30 PM EST Office Visit [facility] ADULT DENTAL [address] [place] [address] Jl Patrick DDS [address] [place] [address] 01/15/2026 10:15 AM EDT Office Visit [facility] ADULT DENTAL [address] [place] [address] Jayda Singh documented as of this encounter Visit Diagnoses Not on filedocumented in this encounter Care Teams Legal Editor Relationship Specialty Start Date End Date Sarah Donald MD [address] [place] [address] PCP - General Internal Medicine 08/28/18 documented as of this encounter
--- OUTSIDE RECORDS SUMMARY | 2025-07-21 20:36 | XMS_ITS | Encounter Summary ---
Author Organization [employer] Address [address] [address] Care Team Providers Care Executive Candidate Developer Name Role Phone Sarah Donald MD Primary Care Provider +1- [phone] Encounter Details Date Type Department Care Team ([facility] st Contact Info) Description 11/04/2024 Orders Only [facility] [address] [place] [address] Sarah Donald MD [address] [place] [address] Social History Tobacco Use Types Packs/Day Years [...] AM EDT Rin Hdz [place] * Feeling bad about yourself - [...] Description 07/31/2025 2:30 PM EST Office Visit [facility] ADULT DENTAL [address] [place] [address] Jl Patrick DDS [address] [place] [address] 01/15/2026 10:15 AM EDT Office Visit [facility] ADULT DENTAL [address] [place] [address] Jayda Singh documented as of this encounter Visit Diagnoses Not on filedocumented in this encounter Additional Health Concerns Assessment Noted Time PHQ-9 Depression Total Score: 0 11/05/19 25 9:53 AM EDT documented as of this encounter Care Teams Executive Candidate Developer Relationship Specialty Start Date End Date Sarah Donald MD [address] [place] [address] PCP - General Internal Medicine 08/28/18 documented as of this encounter
--- OUTSIDE RECORDS SUMMARY | 2025-07-21 20:36 | XMS_ITS | Encounter Summary ---
Author Organization [employer] Address [address] [address] Care Team Providers Care Instructor Trainer Canine Service Name Role Phone Sarah Donald MD Primary Care Provider +1- [phone] Reason for Visit * Reason Onset Date Comments Referral 02/13/2024 Encounter Details Date Type Department Care Team ([facility] st Contact Info) Description 02/13/2024 Telephone [facility] MEDICINE [address] [place] [address] Sarah Donald MD [address] [place] [address] Referral Social History Tobacco Use Types Packs/Day [...] provided fax number for location it is [phone] documented in this encounter Plan of Treatment Upcoming Encounters Date Type Department Care Team (Late st Contact Info) Description 07/31/2025 2:30 PM EST Office Visit [facility] ADULT DENTAL [address] [place] [address] Jl Patrick DDS [address] [place] [address] 01/15/2026 10:15 AM EDT Office Visit [facility] ADULT DENTAL [address] [place] [address] Jayda Singh documented as of this encounter Visit Diagnoses Not on filedocumented in this encounter Additional Health Concerns Assessment Noted Time PHQ-9 Depression Total Score: 3 11/30/19 23 1:45 PM EDT documented as of this encounter Care Teams Instructor Trainer Canine Service Relationship Specialty Start Date End Date Sarah Donald MD [address] [place] [address] PCP - General Internal Medicine 08/28/18 documented as of this encounter
--- OUTSIDE RECORDS SUMMARY | 2025-07-21 20:36 | XMS_ITS | Clinical Summary ---
Author Organization [employer] Address [address] [facility] [address] [place] [address] Care Team Providers Care Director Of Search Engine Optimization Name Role Phone Sarah Donald MD Primary [...] meal. 90 capsule 11 11/30/19 24 Active Additional Information Patient not taking.Reported on 07/16/2025 simvastatin (Zocor) 40 MG tabletIndicatio ns:Hypercholest erolemia Take 1 tablet (40 mg) by mouth at bedtime. 30 tablet 11 11/30/19 24 Active Oxymetazoline HCl 1 % creamIndication s:Rosacea To apply to the affected area daily 30 g 1 11/30/19 24 Active fluticasone (Flonase) 50 MCG/ACT nasal spray Administer 1 spray into each nostril Once per day. 16 g 12/18/19 24 Active Additional Information Patient not taking.Reported on 07/16/2025 furosemide (Lasix) 20 MG tablet 1 tablet in the morning. Active metroNIDAZOLE (MetroCream) 0.75 % creamIndication s:Rosacea Apply topically 2 times daily. 45 g 1 11/05/19 25 2025 Active lisinopril-hydr oCHLOROthiazide 10-12.5 MG tablet TAKE [...] per day. 30 tablet 1 04/14/20 25 2025 Active cholecalciferol (Vitamin D-3) 25 MCG (1000 UT) tabletIndicatio ns:Obesity (BMI 30-39.9) TAKE 1 TABLET BY MOUTH EVERY DAY 90 tablet 1 04/25/20 25 Active meloxicam (Mobic) 15 MG tablet TAKE ONE TABLET DAILY NEEDED 04/25/20 25 Active lisinopril-hydr oCHLOROthiazide 10-12.5 MG tabletIndicatio ns:Primary hypertension Take 1 tablet by mouth Once per day. 90 tablet 3 5 2:41 PM EST 07/21/20 25 Active phenazopyridine (Pyridium) 200 MG tablet Take 1 tablet (200 mg) by mouth if needed in the morning, at noon, and at bedtime for bladder spasms for up to 2 days. 6 tablet 5 2:41 PM EST 07/21/20 25 2024 Active nitrofurantoin, macrocrystal-mo nohydrate, (Macrobid) 100 MG capsule Take 1 capsule (100 mg) by mouth 2 times daily for 7 days. 14 capsule 5 2:41 PM EST 07/21/20 25 2024 Active co-enzyme Q-10 30 MG capsuleIndicati ons:Hypercholes terolemia Take 1 capsule (30 mg) by mouth Once per day. 30 capsule 11 06/24/20 24 2024 lisinopril-hydr oCHLOROthiazide 10-12.5 MG tablet Take 1 tablet by mouth. 10/19/19 16 2024 Discontinued(R eorder (will not trigger notification to Pharmacy)) Active Problems Problem Noted Date Diagnosed Date Tightness of right gastrocnemius muscle 07/21/20 25 Plantar fasciitis 07/21/2025 Stress incontinence 07/21/2025 Encounter for screening colonoscopy 07/01/2024 Chronic fatigue 02/27/2024 Precordial chest pain 02/22/2024 Vertigo 12/18/2023 Assessment & Plan (12/18/2023 3:27 [...] problem 06/13/2013 Disorder of nasal sinus 06/13/2013 Essential hypertension 06/13/2013 HLD (hyperlipidemia) 06/13/2013 Swollen feet 06/13/2013 Encounters Date Type Department Care Team Description 07/21/2025 2:00 PM EST Office Visit [facility] [address] [place] [address] Sujatha Lock MD Dysuria (Primary Dx); Stress incontinence 07/21/2025 Travel 07/21/2025 Orders Only [facility] [address] [place], [place] [phone] Sarah Donald MD Primary hypertension (Primary Dx) 07/21/2025 Telephone [facility] [address] [place] [address] Sarah Donald MD Nurse Triage 07/19/[address] [facility] [address] [place] [address] Sarah Donald MD 07/16/2025 10:15 AM EST Office Visit [facility] ADULT D[facility] [address] [place] [phone] Francisco Jayda Dental calculus (Primary Dx); Dental plaque 05/07/2025 Results Follow-Up [facility] [address] [place] [address] Sarah Donald MD Comprehensive Metabolic Panel, TSH W/Reflex to FT4, Albumin, Random Urine W/Creatinine 04/25/[address] [facility] [address] [place] [phone] Sarah Donald MD Obesity (BMI 30-39.9) from Last 3 Months Social History Tobacco [...] Mass Index 33.07 07/21/2025 1:42 PM EST Plan of Treatment Upcoming Encounters Date Type Department Care Team (Late st Contact Info) Description 07/31/2025 2:30 PM EST Office Visit [facility] [address] [place] [address] Jl Patrick DDS [address] [place] [address] 01/15/2026 10:15 AM EDT Office Visit [facility] [address] [place] [address] Jayda Singh Health Maintenance Due Date Last Done Comments CT Colonography 1955 FIT DNA/Cologuard 1955 FIT 1955 FOBT 1955 Sigmoidoscopy 1955 DTaP/Tdap/Td Vaccines (1 - Tdap) 11/30/1974 Pneumococcal Vaccine: 50+ Years (1 of 1 - PCV) 11/30/2005 Zoster Vaccines (1 of 2) 11/30/2005 SDOH Screening 11/30/2023 11/29/2022 COVID-19 Vaccine ( - season) 2025 08/25/2021, 11/22/2020, 11/01/2020 Influenza Vaccine (#1) 2025 Alcohol/Substance Use Screening 11/04/2025 11/04/2024 Depression Screening 11/04/2025 11/04/2024, 11/05/19 Mammogram 11/29/2025 11/29/2024, 11/27/2023 Dental Oral Exam 01/14/2026 07/16/2025, , 12/25/2024, Additional history exists Dental Prophylaxis 01/14/2026 07/16/2025, 0 12/25/2024, 06/25/2024, Additional history exists Dental X-Ray: Bitewings 07/17/2026 07/16/20 25, 06/25/2024, 03/07/2023, Additional history exists Tobacco Screening 07/21/2026 07/21/2025 Colonoscopy 01/11/2027 01/11/2022 Colorectal Cancer Screening 01/11/2027 Dental X-Ray: Full Mouth 06/26/2027 06/25/2024, 09/29 Lipid Panel 11/04/2029 11/04/2024, 06/0 01/2024, 11/27/2023, [...] DIPSTICK Routine 07/21/2025 2:26 PM EST Dysuria CASE PRESENTATION, DETAILED AND EXTENSIVE TREATMENT PLANNING Routine 07/16/2025 10:15 AM EST ORAL HYGIENE INSTRUCTIONS Routine 07/16/2025 10:15 AM EST INTRAORAL - PERIAPICAL EACH ADDITIONAL RADIOGRAPHIC IMAGE Routine 07/16/2025 10:15 AM EST INTRAORAL - PERIAPICAL FIRST RADIOGRAPHIC IMAGE Routine 07/16/2025 10:15 AM EST BITEWINGS - 4 RADIOGRAPHIC IMAGES Routine 07/16/2025 10:15 AM EST PROPHYLAXIS - ADULT Routine 07/16/2025 1 0:15 AM EST PERIODIC ORAL EVALUATION - ESTABLISHED PATIENT Routine 07/16/2025 10:15 AM EST ALBUMIN, RANDOM URINE W/CREATININE Routine 05/07/2025 10:20 AM EDT Localized edema TSH W/REFLEX TO FT4 Routine 05/07/2025 1 0:16 AM EDT Hypercholesterolem ia COMPREHENSIVE METABOLIC PANEL Routine 05/07/2025 10:16 AM EDT Hypercholesterolem ia HM MAMMOGRAPHY Routine 11/29/2024 9:00 AM EDT LIPID PANEL, STANDARD Routine 11/04/2024 11:03 AM EDT Primary hypertension Hypercholesterolem ia INTRAORAL - COMPLETE SERIES OF RADIOGRAPHIC IMAGES Routine 06/25/2024 1:00 PM EDT HEPATITIS C AB W/REFL TO HCV RNA, QN, PCR Routine 11/27/2023 10:17 AM EDT Localized edema COLONOSCOPY Routine 01/11/2022 from Last 3 Months or Most Recently Relevant to Health Maintenance Results * POCT Urinalysis (07/21/2025 2:26 PM [...] Media Lot # [id number] Lot# Expiration Date 996 Urine (Urine, Random) 07/21/2025 2:26 PM EST us Sujatha Lock MD POINT OF CARE TEST ENTER/EDIT ORDERABLES Final Result * Albumin, Random Urine W/Creatinine (05/07/2025 10:20 AM EDT) Creatinine, Urine 141.76 mg/dL [facility] Microalbumin Urine <5.0 mg/L [facility] Microalbum Creatinine Ratio Ur TNP <30 ug/mg cr [facility] Comment:Unable to calculate albumin/creatinine ratio due to lowmicroalbumin or creatinine result. Urine (Urine, Random) 05/07/2025 10:20 AM EDT 05/07/2025 2:16 PM EDT us Sarah Donald MD LAB URINE ORDERABLES Final Result [facility] [address] [place] [address] [phone] * TSH W/Reflex to FT4 (05/07/2025 10:16 AM EDT) TSH reflex Free T4 3.22 0.32 - 4.0 uIU/mL [facility] Blood Venous blood specimen / Unknown 05/07/2025 10:16 AM EDT 05/07/2025 2:28 PM EDT us Sarah Donald MD LAB BLOOD ORDERABLES Final Result [facility] [address] [place] [address] [phone] * (ABNORMAL) Comprehensive Metabolic Panel (05/07/2025 10:16 AM EDT) Sodium 141 135 - 145 mmol/L [facility] Potassium 3.9 3.3 - 5.1 mmol/L [facility] Chloride 106 96 - 108 mmol/L [facility] Carbon Dioxide 29 22 - 29 mmol/L [facility] Anion Gap 10(L) 12 - 20 [facility] Urea Nitrogen (BUN) 16 9 - 16 mg/dL [facility] Creatinine, Serum 0.74 0.5 - 1.4 mg/dL [facility] Estimated Glomerular Filt Rate >60 [facility] Comment:Chronic Kidney Disea se: Estimated GFR < 60 mL/min/[id number] Kidney Disease: Estimated GFR < 15 mL/min/1.73m2 Glucose 89 60 - 115 mg/dL [facility] Calcium 9.1 8.4 - 10.2 mg/dL [facility] Bilirubin, Total 0.7 0.0 - 1.0 mg/dL [facility] Aspartate Amino Transferase 25 5 - 31 U/L [facility] Alanine Aminotransferase 30 0 - 31 U/L [facility] Total Protein 7.0 6.5 - 8.0 g/dL [facility] Albumin Level 4.1 3.5 - 5.0 g/dL [facility] Alkaline Phosphatase 107 39 - 117 U/L [facility] Blood Venous blood specimen / Unknown 05/07/2025 10:16 AM EDT 05/07/2025 2:28 PM EDT us Sarah Donald MD LAB BLOOD ORDERABLES Final Result [facility] [address] [place] [address] [phone] * Hm Mammography (11/29/2024 9:00 AM EDT) Anatomical Region Laterality Modality Other us Historical Provider HEALTH MAINTENANCE Final Result * (ABNORMAL) Lipid Panel, Standard (11/04/2024 11:03 AM EDT) Triglycerides 122 <150 mg/dL [facility] Comment:Desirable Triglyceri de: less than 150 mg/dLBorderline High Triglyceride 150-199 mg/dLHigh Triglyceride: 200-499 mg/dLVery High Triglyceride: greater than or equal to 5OO mg/dL Cholesterol 204(H) <200 mg/dL [facility] Comment:Desirable Cholestero l: less than 200 mg/dLBorderline High Cholesterol: 200-239 mg/dLHigh Cholesterol: greater than 239 mg/dL LDL Cholesterol Calculated 130(H) <100 mg/dL [facility] Comment:Desirable LDL: less than 100 mg/dLNear Optimal/Above Optimal LDL: 110- 129 mg/dLBorderline High LDL: 130-159 mg/dLHigh LDL: 160-189 mg/dLVery High LDL: greater than or equal to 190 mg/dL HDL Cholesterol 50 >40 mg/dL [facility] Comment:Desirable HDL: great er than 40 mg/dL Note: This HDL assay may give artificially low results in patients with liver disease. Blood Venous blood specimen / Unknown 11/04/2024 11:03 AM EDT 11/04/2024 2:18 PM EDT us Sarah Donald MD LAB BLOOD ORDERABLES Final Result Performing Organization Address City/[facility]/ZIP Co de Phone Number [facility] [address] [place] [address] [phone] * Hepatitis C Antibody with Reflex to HCV, RNA, Quantitative, Real-Time PCR (11/27/2023 10:17 AM EDT) Hepatitis C Antibody Nonreactive Nonreactive [facility] Comment:Antibodies to HCV no t detected; does not exclude early acuteHCV infection. Blood Venous blood specimen / Unknown 11/27/2023 10:17 AM EDT 11/27/2023 2:21 PM EDT us Sarah Donald MD LAB BLOOD ORDERABLES Final Result [facility] [address] [place] [phone] [phone] * Colonoscopy (01/11/2022) Colonoscopy Normal Normal Narrative Marika Azevedo - 01/11/2022 Recommended 5 years Historical Provider HEALTH MAINTENANCE Final Result from Last 3 Months or Most Recently Relevant to Health Maintenance Insurance [employer] MEDICARE REPLACEMENT DENTAL - [employer] DENTAL PPO Care Teams Director Of Search Engine Optimization Relationship Specialty Start Date End Date Sarah Donald MD [address] [place] [phone] PCP - General Internal Medicine 08/28/18
--- OUTSIDE RECORDS SUMMARY | 2025-07-21 20:36 | XMS_ITS | Encounter Summary ---
Author Organization [employer] Address [address] [facility] 7t [place] [address] Care Team Providers Care Recreation Therapy Teacher Name Role Phone Sarah Donald MD Primary Care Provider [phone] Encounter Details Date Type Department Care Team ([facility] st Contact Info) Description 12/02/2024 Orders Only [facility] MED & PEDS [address] [place], [place] [phone] ProviderAubree MD Social History Tobacco Use Types [...] Description 07/31/2025 2:30 PM EST Office Visit [facility] AD[facility] [address] [place] [address] Jl Patrick DDS [address] [place] [address] 01/15/2026 10:15 AM EDT Office Visit [facility] [address] [place] [address] Jayda Singh documented as of this encounter [...] documented as of this encounter Care Teams Recreation Therapy Teacher Relationship Specialty Start Date End Date Sarah Donald MD [address] [place] [id number] PCP - General Internal Medicine 08/28/18 documented as of this encounter
--- OUTSIDE RECORDS SUMMARY | 2025-07-21 20:36 | XMS_ITS | Clinical Summary ---
Author Organization [facility] Address [address] [place] [address] Care Team Providers Care Saddle Tree Stitcher Name Role Phone Unavailable Primary Care Provider [...] - 2023-2 5 season) 2025 RSV Vaccine 50 years and old er and Patients (1 - 1-dose 75+ series) 11/30/2030 Hepatitis B Vaccines Aged Out No long er eligible based on patient's age to complete this topic
--- OUTSIDE RECORDS SUMMARY | 2025-07-21 20:36 | XMS_ITS | Encounter Summary ---
Author Organization [employer] Address [address] [address] Care Team Providers Care Child Psychiatrist Name Role Phone Sarah Donald MD Primary Care Provider [phone] Encounter Details Date Type Department Care Team ([facility] st Contact Info) Description 07/21/2025 Orders Only [facility]ED[facility] [address] [place], [place] [phone] Sarah Donald MD [address] [place] [address] Primary hypertension (Primary Dx) Social History Tobacco Use Types [...] PM EST Office Visit [facility] AD[facility] [address] [place] [address] Jl Patrick DDS [address] [place] [address] 01/15/2026 10:15 AM EDT Office Visit [facility] [address] [place] [address] Jayda Singh documented as of this encounter Visit Diagnoses Diagnosis Primary hypertension- Primary Unspecified essential hypertension documented in this encounter Additional Health Concerns Assessment Noted Time PHQ-9 Depression Total Score: 0 11/05/19 25 9:53 AM EDT documented as of this encounter Care Teams Child Psychiatrist Relationship Specialty Start Date End Date Sarah Donald MD [address] [place] [address] PCP - General Internal Medicine 08/28/18 documented as of this encounter
--- OUTSIDE RECORDS SUMMARY | 2025-07-21 20:36 | XMS_ITS | Encounter Summary ---
Author Organization [employer] Address [address] [address] Care Team Providers Care Quality Manager Name Role Phone Sarah Donald MD Primary Care Provider [phone] Reason for Visit * Reason Onset Date Comments Nurse Triage 07/21/2025 Encounter Details Date Type Department Care Team ([facility] st Contact Info) Description 07/21/2025 Telephone [facility] [address] [place] [address] Sarah Donald MD [address] [place] [address] Nurse Triage Social History Tobacco Use Types Packs/Day Years [...] encounter Miscellaneous Notes * Telephone Encounter - Iram Dumont RN - 07/21/2025 8:45 AM EST TC placed to pt for triage. Pt reports a pinching pain with urination and itching x 3 days and malodorous urine. Pt reports they experience a pinching pain with urination and then it goes away. Pt denies vaginal discharge, fever, back pain, increased urgency. Pt booked for sick on site with Sujatha Lock today at 2:00 PM. Pt agreeable to appointment. Pt reports they went to the dentist on Monday and informed them they need a refill on their lisinopril- hydroCHLOROthiazide 10-12.5 MG tablet. Ptreports the dentist stated they would send a message to PCP regarding refill request. Per review ofchart, medication has not been sent. Message forwarded to PCP to review and advise. Pt verbalized understanding and denies questions at this time. Protocol Used: Urination Pain - Female (Adult) Protocol-Based Disposition: See in Office or Video Visit Today Video visit offer not recorded Positive Triage Questions: * Age > 50 years * All other females with painful urination, or patient wants to be seen * All higher-acuity triage questions were negative. Care Advice Discussed: * Reasons To Call Back - Fever or back pain occurs - You become worse * Telephone Encounter - Margie Tian - 07/21/2025 8:10 AM EST Symptom: Urine Symptoms Outcome: Schedule an urgent appointment (within 4 hours) or talk to a nurse or provider soon Reason: Pain when passing urine (peeing) The caller accepted this outcome. Contact pt at [phone] documented in this encounter Plan of Treatment Upcoming Encounters Date Type Department Care Team (Late st Contact Info) Description 07/31/2025 2:30 PM EST Office Visit [facility] ADULT D[facility] [address] [place] [address] Jl Patrick DDS [address] [place] [address] 01/15/2026 10:15 AM EDT Office Visit [facility] ADULT D[facility] [address] [place] [address] Jayda Singh documented as of this encounter Visit Diagnoses Not on filedocumented in this encounter Additional Health Concerns Assessment Noted Time PHQ-9 Depression Total Score: 0 11/05/19 25 9:53 AM EDT documented as of this encounter Care Teams Quality Manager Relationship Specialty Start Date End Date Sarah Donald MD [address] [place] [address] PCP - General Internal Medicine 08/28/18 documented as of this encounter
--- OUTSIDE RECORDS SUMMARY | 2025-07-21 20:36 | XMS_ITS | Encounter Summary ---
Author Organization [employer] Address [address] [address] Care Team Providers Care Erp Specialist Name Role Phone Sarah Donald MD Primary Care Provider [phone] Reason for Visit * Reason Comments Med Refill Encounter Details Date Type Department Care Team ([facility] st Contact Info) Description 07/19/2025 Refill [facility] & PEDS [address] [place], [place] [phone] Sarah Donald MD [address] [place] [address] Social History Tobacco Use Types Packs/Day Years [...] [facility] Contact Info) Description 07/31/2025 2:30 PM EST Office Visit [facility] AD[facility] [address] [place] [address] Jl Patrick DDS [address] [place] [address] 01/15/2026 10:15 AM EDT Office Visit [facility] [address] [place] [address] Jayda Singh documented as of this encounter Visit Diagnoses Not on filedocumented in this encounter Additional Health Concerns Assessment Noted Time PHQ-9 Depression Total Score: 0 11/05/19 25 9:53 AM EDT documented as of this encounter Care Teams Erp Specialist Relationship Specialty Start Date End Date Sarah Donald MD [address] [place] [address] PCP - General Internal Medicine 08/28/18 documented as of this encounter
--- OUTSIDE RECORDS SUMMARY | 2025-07-21 20:36 | XMS_ITS | Clinical Summary ---
Author Organization [address] [place] [address] [place] [phone] Phone Care Team Providers Care Credit Collection Associate Name Role Phone Sarah Donald MD Primary Care Provider [phone] Allergies No known active allergies Medications lisinopril-hydr oCHLOROthiazide (PRINZIDE,ZESTO RETIC) 10-12.5 mg per tablet Take 1 tablet by mouth 1 (one) time each day. Active furosemide (LASIX) 20 mg tablet Take 1 tablet (20 mg total) by mouth as needed. Active simvastatin (ZOCOR) 20 mg tablet Take 1 tablet (20 mg total) by mouth at bedtime. Active omeprazole (PriLOSEC) [address] capsule Take 1 capsule (20 mg total) by mouth 1 (one) time each day. Active cholecalciferol (VITAMIN D-3) 25 mcg (1,000 unit) tablet Take 1 tablet (1,000 Units total) by mouth 1 (one) time each day. Active estradioL (CLIMARA) 0.1 mg/[address] 1 patch on the skin 1 (one) time per week. Active Active Problems Problem Noted Date Diagnosed Date Chronic fatigue 02/27/2024 Assessment & Plan (01/23/2025 11:26 AM EDT): Thus far, the patient's fatigue does not seem to be related to chronotropic incompetence, profound bradycardia or coronary insufficiency based on noninvasive testing. She is not anemic, and her thyroid function is normal. I have asked her to increase her exercise as above and notify me if her symptoms fail to improve. Bradycardia 02/22/2024 Overview (01/23/2025): with heart rate as low as the 40s - 24-hour [place]20[place] [facility] [place] frequent sinus bradycardia with heart rate below 60 44% of the time, average heart rate 66, no pauses over 2.5 seconds. There is no clear pattern or timing of her bradycardia -7-day monitor showed no significant arrhythmias, some PACs, and patient reported symptoms during normal sinus rhythm with normal heart rates and during sinus rhythm with PACs. There is no profound bradycardia -Exercise stress echocardiogram 02/2024 where she was able to exercise for 4 minutes of a standard Judson protocol, 88% of her MPHR, a 6.5 MET workload, without symptoms, and there was no evidence of ischemia by ECG or echocardiogram. Her resting LVEF was normal as well as her wall thickness. Assessment & Plan (01/23/2025 11:26 AM EDT): The patient is in normal sinus rhythm on exam and EKG today. She has not had any profound bradycardia noted on a 24-hour Holter monitor and a 7-day monitor in 2023. She has not had any syncope or presyncope. She is currently denying dizziness. Her only symptom is breathlessness. However, during her stress echocardiogram, she had adequate heart rate response to exercise, arguing against chronotropic incompetence as the etiology of her breathlessness. Therefore, I have encouraged the patient to increase her exercise with walking. She is also interested in joining the gym. This is certainly reasonable if this motivates her. Hopefully, with better physical conditioning, her breathlessness will improve. Though she did not have any ischemia based on her stress echocardiogram, she did have an overall slightly poor exercise capacity for her age. She will notify me if her symptoms are not better after a reasonable amount of regular exercise. At that time, can consider coronary CTA to evaluate for obstructive CAD as the etiology of her shortness of breath. The patient understands this plan and agrees Essential hypertension 02/22/2024 Assessment & Plan (01/23/2025 11:24 AM EDT): Patient's blood pressure is well-controlled on current dose ISABEL inhibitor and thiazide diuretic. She also utilizes as needed furosemide for lower extremity edema. Continue current treatment plan HLD (hyperlipidemia) 02/22/2024 Assessment & Plan (01/23/2025 11:24 AM EDT): LDL is reasonable on current dose statin without known CAD. Continue Precordial chest pain 02/22/2024 Family History Medical History Relation Name Comments Heart failure Brother Heart failure Father Heart failure Mother Relation Name Status Comments Brother Father Mother Social History Tobacco Use Types Packs/Day Years Used Date Smoking Tobacco: Never Smokeless Tobacco: Never Alcohol Use Standard Drinks/Week Comments Not Currently 0 (1 standard drink = 0.6 oz pur e alcohol) Comments Unknown Sex and Gender Information Value Date Recorded Sex Assigned at Not on file Legal Sex Female 3:42 PM EDT Gender Identity Not on file Sexual Orientation Not on file Obstetrics History Last Filed Vital Signs Vital Sign Reading Time Taken Comments Blood Pressure 106/70 01/22/2025 10:54 AM EDT Pulse 61 01/22/2025 10:54 AM EDT Temperature - - Respiratory Rate - - Oxygen Saturation 99% 01/22/2025 10:54 AM EDT Inhaled Oxygen Concentration - - Weight 92.6 kg (204 lb 3.2 oz) 01/22/2025 10:54 AM EDT Height 166.4 cm (5' 5.5 ) 01/22/2025 10:54 AM ED T Body Mass Index 33.46 01/22/2025 10:54 AM EDT Plan of Treatment Upcoming Encounters Date Type Department Care Team (Late st Contact Info) Description 07/30/2025 10:10 AM EST Office Visit [facility] [address] [place] [address] Heidy Interiano NP [address] [place] [address] [place] [address] Health Maintenance Due Date Last Done Comments Breast Cancer Screening 1955 Colorectal Cancer Screening: Colonoscopy 1955 DTaP,Tdap,and Td Vaccines (1 - Tdap) 11/30/1974 Pneumococcal Vaccine: 50+ Years (1 of 1 - PCV) 11/30/2005 Zoster Vaccines (1 of 2) 11/30/2005 Falls Risk Assessment 06/05/2024 Medicare Annual Wellness Visit 06/05/2024 Osteoporosis Screening (Bone Density Screening) 06/05/2024 Social Influencers of Health Screening 06/05/2024 Depression Screening 08/28/2024 COVID-19 Vaccine (4 - 2024-2 6 season) 2025 08/25/2021, 11/22/2020, 11/01/2020 Influenza Vaccine (#1) 2025 Hypertension/CHF/CAD Annual BMP Blood Test 11/04/2025 11/04/2024 Cholesterol Screening (Lipid Panel) 11/04/2029 11/04/2024 RSV Immunization Adult Patients (1 - 1-dose 75+ series) 11/30/2030 [...] on patient's age to complete this topic MMR Vaccines Aged Out No longer eligi ble based on patient's age to complete this topic Meningococcal ACWY Vaccine Aged Out N o longer eligible based on patient's age to complete this topic Meningococcal B Vaccine Aged Out No l onger eligible based on patient's age to complete this topic RSV Immunization Patients Under 20 months Aged Out No longer eligible b ased on patient's age to complete this topic Varicella Vaccines Aged Out No longer eligible based on patient's age to complete this topic Insurance [employer] MEDICARE ADVANTAGE Care Teams Credit Collection Associate Relationship Specialty Start Date End Date Sarah Donald MD [address] [place] [address] PCP - General 02/14/24
--- OUTSIDE RECORDS SUMMARY | 2025-07-21 20:36 | XMS_ITS | Encounter Summary ---
Author Organization [employer] Address [address] [facility] [address] [place] [address] Care Team Providers Care Legal Compliance Officer Name Role Phone Sarah Donald MD Primary Care Provider [phone]- [phone] Encounter Details Date Type Department Care Team (Latest Contact Info) Description 07/21/2025 Travel Social History Tobacco Use Types Packs/Day [...] 07/31/2025 2:30 PM EST Office Visit [facility] [address] [place] [address] Jl Patrick DDS [address] [place] [address] 01/15/2026 10:15 AM EDT Office Visit [facility] [address] [place] [address] Jayda Singh documented as of this encounter Visit Diagnoses Not on filedocumented in this encounter Additional Health Concerns Assessment Noted Time PHQ-9 Depression Total Score: 0 11/05/19 25 9:53 AM EDT documented as of this encounter Care Teams Legal Compliance Officer Relationship Specialty Start Date End Date Sarah Donald MD [address] [place] [address] PCP - General Internal Medicine 08/28/18 documented as of this encounter
--- OUTSIDE RECORDS SUMMARY | 2025-07-21 20:36 | XMS_ITS | Encounter Summary ---
Author Organization [employer] Address [address] [facility] [address] [place] [address] Care Team Providers Care Night Stocker Name Role Phone Sarah Donald MD Primary Care Provider [phone] Encounter Details Date Type Department Care Team ([facility] st Contact Info) Description 02/14/2025 Orders Only [facility] [address] [place], [place] [id number] ProviderAubree MD Social History Tobacco Use Types [...] 07/31/2025 2:30 PM EST Office Visit [facility] [address] [place] [address] Jl Patrick DDS [address] [place] [address] 01/15/2026 10:15 AM EDT Office Visit [facility] [address] [place] [address] Jayda Singh documented as of this encounter [...] documented as of this encounter Care Teams Night Stocker Relationship Specialty Start Date End Date Sarah Donald MD [address] [place] [phone] PCP - General Internal Medicine 08/28/18 documented as of this encounter
[2025-07-22 00:29] LABS: Bacterial Vaginosis PCR NEGATIVE (Negative); Candida Group PCR NOT DETECTED (Not Detect); Candida glab krusei PCR NOT DETECTED (Not Detect); Trichomonas vaginalis PCR NOT DETECTED (Not Detect)
== END 2025-07-21 18:27 | disposition home or self-care (01) ==
LOC: HO.HHCLNP 18:26
PROVIDERS: Visit Provider Family Medicine
DX: R30.0 Dysuria (principal)
CPT/HCPCS: 81515